=== PATIENT | male | born 1955 | race Caucasian/White ===

== ENCOUNTER 2020-09-03 13:00 | Outpatient (RCR) | payer MEDICARE, SELFPAY ==
[2020-08-20 13:56] VITALS: BP 126/80
--- NOTE | 2020-08-20 15:11 | MHC.PT.EP ---
[facility] [place] Office [place] [facility] [place] [facility] [address] Maykel Acosta [address] [phone] F: [phone] F: [phone] F: [phone] F: [phone] Physical Therapy Plan of Care Date of Evaluation: Date of Surgery: Diagnosis: dizziness and giddiness Assessment: 65 y/o male referred to PT with dizziness and giddiness. He has a history of R ear blockage and has always felt that things are still moving when he stops motion. He recently had ear wax removal and this helped his sx significantly but he still feels offbalance/ things are still moving with walking with head turns, looking up, and getting OOB. Examination shows WNL oculomotor, impaired balance espeically with eyes closed and on foam, 22/24 DGI with impairments with H/V head turns, and (-) for BPPV. Recommend PT 2x/week for 4 weeks (pt has a high co-pay and would like to come 1x/week for 2 weeks) to address impairments, implement HEP, and optimize functional mobility. Frequency and Duration: The patient will be seen 1x/week for 2 weeks Short Term Goals: Pt will demonstrate improved coordination of head and eye movement with walking Film Producer Goals: Pt to be able to functionally move in all planes without provocation of dizziness and return to PLOF in 2 weeks Pt to be educated on sx and indications to return to therapy when needed in 2 weeks Pt will report (-) for hallucination of movement/ exaggeration of motion in all functional planes Treatment Plan: Modalities to reduce pain, spasms and effusion. Manual therapy to restore motion and function. Therapeutic exercise to improve strength and flexibility. Neuromuscular re-education for posture and balance. Therapeutic activities to return to functional activities of daily living. Electronically signed by: Lindsay Vasques PT Please sign and return to therapist. Thank you for your referral.
--- NOTE | 2020-10-22 13:11 | MHC.PT.DC ---
[facility] [place] [facility] [place] [facility] [place] [facility] [address] Maykel Acosta [address] [phone] F: [phone] F: [phone] F: [phone] F: [phone] Physical Therapy Discharge Report Diagnosis: dizziness and giddiness Date of Surgery: Date of Evaluation: 08/20/20 Date of Discharge: 10/22/20 Treatments to Date: 2 Cancellations to Date: 0 No Shows to Date: 0 Discharge Status: Discharge Summary: D/c secondary to not f/u with further visits. At time of last attended visit, Pt needs cues to slow down pace of head turns and take breaks. He was most challenged with gait with diagonal and horizontal head turns with some veering laterally intermittently. He also was challenged with rockerboard balance. No dizziness or lightheadedness noted. He cancelled next visit due to [id number] and if he is able, will f/u in 1-2 weeks. Otherwise he will focus on HEP. Electronically signed by: Lindsay Vasques PT Please sign and return to therapist. Thank you for your referral.
== END 2020-10-22 13:12 | disposition home or self-care (01) ==
LOC: HO.PTCHIC 13:00
PROVIDERS: PCP Internal Medicine; Visit Provider Internal Medicine
DX: R42 Dizziness and giddiness (principal)
CPT/HCPCS: 95992; 97112; 97162

== ENCOUNTER 2020-10-25 06:38 | Outpatient (REF) | payer MEDICARE, SELFPAY ==
[2020-10-25 11:09] LABS: MANUAL DIFF FLAG NO
[2020-10-25 11:16] LABS: Basophils Percent Auto 0.6 % (0-2); Eosinophils Absolute Auto 0.3 X10*3/uL (0.0-0.4); Eosinophils Percent Auto 5.3 % (0-4); Hematocrit 46.1 % (42-52); Hemoglobin 15.6 g/dl (14.0-18.0); Imm Gran Abs Auto 0.02 X10*3/uL (0.00-0.03); Imm Gran Pct Auto 0.3 % (0.0-0.4); Lymphocytes Absolute Auto 1.6 X10*3/uL (1.2-4.9); Lymphocytes Percent Auto 25.2 % (20-40); Mean Corpuscular HGB Conc 33.8 g/dl (31.0-36.0); Mean Corpuscular Hemoglobin 30.7 pg (27.0-33.0); Mean Corpuscular Volume 90.7 fL (80-98); Mean Platelet Volume 10.6 fL (9.4-12.4); Monocytes Absolute Auto 0.7 X10*3/uL (0.1-1.2); Monocytes Percent Auto 10.3 % (2-11); Neutrophils Absolute Auto 3.7 X10*3/uL (2.0-8.3); Neutrophils Percent Auto 58.3 % (45-73); Platelet Count 223 X10*3/uL (160-400); Red Blood Count 5.08 X10*6/uL (4.60-5.80); Red Cell Distribution Width 12.7 % (11.0-16.0); White Blood Count 6.4 X10*3/uL (4.8-10.8)
[2020-10-25 11:48] LABS: Alanine Aminotransferase 16 U/L (0-40); Anion Gap 13 (12-20); Aspartate Amino Transferase 23 U/L (5-37); Blood Urea Nitrogen 19 mg/dL (9-16); Calcium 9.3 mg/dL (8.4-10.2); Carbon Dioxide 25 mmol/L (22-29); Chloride 107 mmol/L (96-108); Cholesterol 226 mg/dL; Estimated Glomerular Filt Rate > 60; Glucose Fasting 96 mg/dL (60-99); HDL Cholesterol 55 mg/dL; LDL Cholesterol Calculated 148 mg/dl; Potassium 4.4 mmol/L (3.3-5.1); Sodium 141 mmol/L (135-145); Triglycerides 115 mg/dL
[2020-10-25 11:56] LABS: Vitamin D 25-OH Total 27.3 ng/mL (>30)
[2020-10-25 12:10] LABS: PSA,Total (Free>4and<10) 1.98 ng/mL (0.00-4.00)
== END 2020-10-25 06:39 | disposition home or self-care (01) ==
LOC: HO.HMGCLDS 06:38
PROVIDERS: PCP Internal Medicine; Visit Provider Internal Medicine
DX: Z00.01 Encounter for general adult medical examination with abnormal findings (principal); E78.5 Hyperlipidemia, unspecified; I10 Essential (primary) hypertension; R42 Dizziness and giddiness
CPT/HCPCS: 36415; 80048; 80061; 82306; 84153; 84450; 84460; 85025

== ENCOUNTER 2021-10-21 12:28 | Outpatient (REF) | payer MEDICARE, SELFPAY ==
--- NOTE | ~2021-10-21 | XR_ITS ---
EXAMINATION: XR KNEE, RIGHT CLINICAL INFORMATION: M25.561 - Pain in right knee COMPARISON: Standing AP knees 08/24/2014 TECHNIQUE: Four views of the right knee. FINDINGS: There are osteoarthritic changes greatest involving the lateral patellofemoral joint with joint narrowing and subchondral sclerosis, osteophytes, and mild lateralization patella. There are marginal osteophytes also involving the femoral condyles and tibial plateau. No erosive change or visible chondrocalcinosis. Mild sharpening tibial spine again seen. No definite suprapatellar effusion. Hoffa's fat pad appears normal. XR/XR knee RT 4V IMPRESSION: -Osteoarthritis, greatest lateral patellofemoral joint with mild lateralization patella.
== END 2021-10-21 12:29 | disposition home or self-care (01) ==
LOC: HO.XRAY 12:28
PROVIDERS: PCP Internal Medicine; Visit Provider Internal Medicine
DX: M25.561 Pain in right knee (principal)
CPT/HCPCS: 73564

== ENCOUNTER 2021-10-28 07:40 | Outpatient (REF) | payer MEDICARE, SELFPAY ==
[2021-10-28 12:04] LABS: Alanine Aminotransferase 20 U/L (0-40); Anion Gap 14 (12-20); Aspartate Amino Transferase 23 U/L (5-37); Blood Urea Nitrogen 16 mg/dL (9-16); Calcium 9.2 mg/dL (8.4-10.2); Carbon Dioxide 24 mmol/L (22-29); Chloride 106 mmol/L (96-108); Cholesterol 239 mg/dL; Estimated Glomerular Filt Rate > 60; Glucose Fasting 106 mg/dL (60-99); HDL Cholesterol 51 mg/dL; LDL Cholesterol Calculated 167 mg/dl; Potassium 4.3 mmol/L (3.3-5.1); Sodium 140 mmol/L (135-145); Triglycerides 105 mg/dL
[2021-10-28 12:11] LABS: PSA,Total (Free>4and<10) 3.79 ng/mL (0.00-4.00); Vitamin D 25-OH Total 40.7 ng/mL (>30)
== END 2021-10-28 07:41 | disposition home or self-care (01) ==
LOC: HO.HMGCLDS 07:40
PROVIDERS: Visit Provider Internal Medicine
DX: Z00.01 Encounter for general adult medical examination with abnormal findings (principal); Z12.5 Encounter for screening for malignant neoplasm of prostate; E78.5 Hyperlipidemia, unspecified
CPT/HCPCS: 36415; 80048; 80061; 82306; 84153; 84450; 84460

== ENCOUNTER → 2021-11-18 09:43 | Outpatient (BNVA) | payer MEDICARE, SELFPAY | PROVIDERS: PCP Internal Medicine; Visit Provider Orthopaedic Surgery | DX: M17.11 Unilateral primary osteoarthritis, right knee (principal) | CPT/HCPCS: 99212 ==

== ENCOUNTER 2023-06-08 08:22 | Outpatient (AMB) | payer MEDICARE, SELFPAY ==
--- NOTE | 2023-06-08 08:29 | MHC.PC.OV ---
Vital Signs 06/08/23 08:31 06/08/23 09:07 Height 5 ft 9 in Weight 210 lb BMI 31.0 BP 150/92 H 150/90 H Blood Pressure Location Rt brachial Rt brachial Position Sitting Supine Pulse 76 Pulse Source Pulse Oximeter Pulse Oximetry (%) 98 Oxygen Delivery Method Room Air Intake Visit Reasons: Physical exam Intake Note: Pt is here today for his PE: Last colonoscopy 11/11/21 Allergies No Known Allergies [No Known Allergies*] Allergy (Verified 06/08/23 08:31) Medication List - Last Reconciled 06/08/23 by Susanne Duarte MD blood pressure monitor check bloos pressure As directed blood pressure test kit-medium check blood pressure as directed once a day cholecalciferol (vitamin D3) 50 mcg PO DAILY mecobalamin (vitamin B12) mcg PO omega 5-oyz-hxq-fish oil 1,200 (144-216) mg (Fish Oil) caps PO Tobacco use date assessed: 06/08/23 Fall risk assessment: No Falls in past year Last assessed Fall Risk: 06/08/23 Dental Screening Dental Screen Date: 06/08/23 Did you have a dental visit in the last 12 months?: No Was dental information given to patient?: No HPI Physical exam HPI Details 68-year-old male here today for his physical exam. He is up-to-date with his colon cancer screening, with a negative Cologuard test done in 2021. He has hypertension and hyperlipidemia, currently not on any medication and tries to control through diet and exercise patient states that he has changed his eating habi, eating more vegetables and fish, however does not get any regular exercise. Complains of urinary frequency accompanied by urinary hesitancy and weak urinary stream for the last several months now. Denies any dysuria, no abdominal or back pain. Complains of several lesions on top of his scalp, and a lump on his forehead. [facility] Medical History (Updated 06/08/23 @ 09:13 by Susanne Duarte MD) Positional lightheadedness Annual visit for general adult medical examination with abnormal findings Varicose vein of leg De Quervain's tenosynovitis, left History of squamous cell carcinoma Dyslipidemia Essential hypertension Vertigo Surgical History H/O umbilical hernia repair Hx of colonoscopy Family History (Updated 06/08/23 @ 09:15 by Susanne Duarte MD) Daughter Mental health disorder Basal cell carcinoma (BCC) of ken ugarte Other Unknown family medical history Social History Housing: House Alcohol intake: current Alcohol intake frequency: a few times a month Patient Tobacco Use Status: Never used Tobacco e-Cigarette/Vaping Use: Never Used Current occupational status: employed Cognitive needs: No Hearing needs: No Vision needs: Yes Questionnaire PHQ-9 Over the last 2 weeks, how often have you been bothered by any of the following problems? 1. Little interest or pleasure in doing things: not at all 2. Feeling down, depressed, or hopeless: not at all 3. Trouble falling or staying asleep, or sleeping too much: not at all 4. Feeling tired or having little energy: not at all 5. Poor appetite or overeating: not at all 6. Feeling bad about yourself - or that you are a failure or have let yourself or your family down: not at all 7. Trouble concentrating on things, such as reading the newspaper or watching television: not at all 8. Moving or speaking so slowly that other people could have noticed. Or the opposite - being so fidgety or restless that you have been moving around a lot more than usual: not at all 9. Thoughts that you would be better off or of hurting yourself in some way: not at all Total score: 0 Depression Screening Interpretation: Negative Depression Screening Done: Yes 83873 - PHQ-9 Billing: Yes Source: Developed by Drs. Simon Apodaca, Davina Mart, Larry Macias and colleagues, with an educational from [employer]. Thrive Questionnaire Date Thrive assessed: 06/08/23 I am a: Patient What is your living situation today?: I have a steady place to live Within the past 12 months, did the food you bought not last and you didn't have the money to get more?: Never true Within the past 12 months, did you worry whether your food would run out before you got money to buy more?: Never true Do you have trouble paying for medicines?: No Do you have trouble getting transportation to medical appointments?: No Do you have trouble paying your heating and electricity bill?: No Do you have trouble taking care of your child, family member or friend?: No Do you have trouble with day-to-day activities such as bathing, preparing meals, shopping, managing finances, etc.?: No Are you currently unemployed and looking for a job?: No Are you interested in more education?: No THRIVE Score: 0 AUDIT C Alcohol Use Questionnaire (AUDIT-C) 1. How often do you have a drink containing alcohol?: 2-3 times a week 2. How many drinks containing alcohol do you have on a typical day when you are drinking?: 1 or 2 3. How often do you have six or more drinks on one occasion?: Never Total Score: 3 MELINDA-7 AMB Questionnaire MELINDA-7 Date MELINDA - 7 assessed: 06/08/23 Feeling nervous, anxious, or on edge: 0 = Not at all Not being able to stop or control worryin = Not at all Worrying too much about different things: 0 = Not at all Trouble relaxin = Not at all Being so restless that it is hard to sit still: 0 = Not at all Becoming easily annoyed or irritable: 0 = Not at all Feeling afraid as if something awful might happen: 0 = Not at all Total MELINDA-7 score (0-4 normal; 5-9 mild; 10-14 moderate; 15-21 severe): 0 Source: Developed by Drs. Simon Apodaca, Davina Mart, Larry Macias and colleagues, with an educational from [employer]. MELINDA-7 Assessment Billing MELINDA-7 Assessment Tool: MELINDA-7 Assessment 04514 Review of Systems Const Denies body aches, Denies fatigue, Denies fever(s), Denies headache(s) and Denies weakness Eyes Reports blurry vision (With reading, wears reading glasses) ENT Reports Normal hearing present, Denies dysphagia, Denies dizziness, Denies headache(s), Denies nasal congestion, Denies disequilibrium, Denies post nasal drip, Denies tinnitus and Denies sore throat Card Denies chest pain, Denies lightheadedness, Denies palpitations and Denies dyspnea Resp Denies chest congestion, Denies cough, Denies dyspnea and Denies wheezing GI Denies abdominal pain, Denies change in bowel habits, Denies dysphagia and Denies heartburn Reports as per HPI, Denies hematuria, Denies difficulty urinating, Denies dysuria, Denies penile discharge, Denies testicular mass, Reports urinary hesitancy and Denies urinary incontinence Musc Denies myalgias, Reports arthralgias, Denies joint swelling, Denies limited range of motion and Reports stiffness (Fingers, knees and shoulders) Skin/Breast Reports as per HPI and Denies rash Neuro Reports Normal hearing present, Denies dizziness, Denies headache(s), Denies disequilibrium and Denies weakness Psych Reports no additional complaints Endo Denies fatigue, Denies polydipsia, Denies polyuria and Denies palpitations Kevin/Lymph Denies easy bruising Aller/Immun Denies seasonal rhinorrhea and Denies wheezing Physical exam (Primary Care) Vital Signs: Last Vital Signs Pulse 76 06/08/23 08:31 BP 150/92 H 06/08/23 08:31 Pulse Ox 98 06/08/23 08:31 Oxygen Delivery Method Room Air 06/08/23 08:31 BMI result Body Mass Index 31.0 BMI Assessment/Plan discussion: High BMI High, discussed plan: lifestyle, weight reduction, dietary, physical activity and alcohol moderation Tobacco/Smoking Status: Tobacco use Status Tobacco use date assessed 06/08/23 06/08/23 08:35 Patient Tobacco Use Status Never used Tobacco 06/08/23 08:35 e-Cigarette/Vaping Use Never Used 06/08/23 08:35 Depression Screening Interpretation: Negative Thrive Assessment: Date of Thrive Assessment Date Thrive assessed 10/18/21 06/08/23 08:35 Const General: cooperative, comfortable, no acute distress and Physically active Nutritional Appearance: obese Orientation/consciousness: patient oriented x3 Limitations: no limitations HENMT Head: Yes normal to inspection and Yes scalp lesion (Erythematous papular lesions on top of scalp) Ears: hearing grossly normal bilaterally, external ears normal, TM's normal bilaterally and Abnormal EAC present excessive cerumen on the left; no EA tenderness and no otic discharge General nose exam: Normal external nose present Face and sinus: Yes face symmetric Mouth: Normal oral and palatal mucosa present, oropharynx normal and moist mucous membranes Eyes General: appearance normal, both eyes and all related structures Conjunctivae: conjunctivae normal Pupils: Equal, round and reactive pupils present EOM: EOMs intact bilaterally Neck Neck: Yes full ROM, Yes no lymphadenopathy and Yes supple Thyroid: Thyroid normal Chest Chest palpation & inspection: normal inspection of the chest Resp Effort & Inspection: normal respiratory effort and able to speak in complete sentences Auscultation: clear to auscultation bilaterally Cardio Rate: regular rate Rhythm: regular rhythm Heart sounds: S1 normal heart sound present and S2 normal heart sound present GI Inspection: Yes normal to inspection Palpation (GI): Soft to palpation, nontender and no masses Auscultation: normal bowel sounds General: Yes no CVA tenderness Male General Exam: Yes normal external exam Penis: normal penis Scrotum: scrotum normal Testes: no testicular mass Back/Spine/Pelvis Back: no CVA tenderness and No back tenderness Cervical Spine: cervical ROM normal Thoracic/Lumbar Spine: thoracic and lumbar spine normal to inspection Skin Other: Nodular lesion on forehead, nontender to palpation, erythematous papular lesions on top of scalp Neuro General: patient oriented x3, gait normal, tone normal, moves all extremities, Normal light touch and pain sensation and no focal motor deficits Cranial nerves: Yes Equal, round and reactive pupils present and Yes Normal hearing present Cognition (Neuro): normal cognition Gait exam (Neuro): Normal gait present Motor exam (neuro): 5/5 motor strength present throughout Extrem General: Yes full ROM, Yes no joint enlargement, Yes no pedal edema, Yes no calf tenderness and Yes normal gait Psych Appearance: grossly normal Mental Status: mental status grossly normal Speech and movement: Normal speech and movement present and Clear speech present Affect: normal affect Attitude: cooperative Thought process: Normal thought process present Thought content: Normal thought content present Assessment and Plan Assessment & Plan (1) Annual visit for general adult medical examination with abnormal findings: Code(s): Z00.01 - Encounter for general adult medical examination with abnormal findings Plan: Will check appropriate labs. Recommended dental visit every 6 months and regular eye exams, at least every 2 years. Continue with taking calcium from dietary sources and continue taking vitamin-D 3 2000 units daily. Do regular weight-bearing exercise to prevent osteoporosis. Up-to-date with his colon cancer screening had Cologuard testing done in 2021 with negative findings, due again in 2024. Up-to-date with all his vaccinations. Advised to do regular self testicular exam to check for any mass. (2) Dyslipidemia: Code(s): E78.5 - Hyperlipidemia, unspecified Plan: Fasting lipid panel ordered, reinforced importance of following low-cholesterol diet and getting regular exercise. (3) Essential hypertension: Code(s): I10 - Essential (primary) hypertension Plan: Blood pressure has been elevated, currently asymptomatic. Patient declines starting any medications at present time, placed on a low-salt diet advised to exercise regularly, and see nurse navigator in 3 weeks to check blood pressure. Bring own blood pressure monitor to confirm accuracy of readings. If persistently elevated, will start on medication (4) Skin cancer screening: Code(s): Z12.83 - Encounter for screening for malignant neoplasm of skin Plan: Referral to Dr. Espinoza ordered (5) Skin lesion of scalp: Code(s): L98.9 - Disorder of the skin and subcutaneous tissue, unspecified Plan: Referral to Dr. Espinoza ordered (6) Increased urinary frequency: Code(s): R35.0 - Frequency of micturition Plan: Referral to urology, ordered total PSA level (7) Urinary stream slowing: Code(s): R39.198 - Other difficulties with micturition Plan: Referral to urology Orders: Orders PSA,Total (Free>4and<10) Today E78.5 - Hyperlipidemia, unspecified, I10 - Essential (primary) hypertension, R35.0 - Frequency of micturition, R39.198 - Other difficulties with micturition, Z00.01 - Encounter for general adult medical examination with abnormal findings Aspartate Amino Transferase Today E78.5 - Hyperlipidemia, unspecified, I10 - Essential (primary) hypertension, R35.0 - Frequency of micturition, R39.198 - Other difficulties with micturition, Z00.01 - Encounter for general adult medical examination with abnormal findings Basic Metabolic Panel Fasting Today E78.5 - Hyperlipidemia, unspecified, I10 - Essential (primary) hypertension, R35.0 - Frequency of micturition, R39.198 - Other difficulties with micturition, Z00.01 - Encounter for general adult medical examination with abnormal findings Lipid Panel Today E78.5 - Hyperlipidemia, unspecified, I10 - Essential (primary) hypertension, R35.0 - Frequency of micturition, R39.198 - Other difficulties with micturition, Z00.01 - Encounter for general adult medical examination with abnormal findings Vitamin D 25-OH Total Today E78.5 - Hyperlipidemia, unspecified, I10 - Essential (primary) hypertension, R35.0 - Frequency of micturition, R39.198 - Other difficulties with micturition, Z00.01 - Encounter for general adult medical examination with abnormal findings Alanine Aminotransferase Today E78.5 - Hyperlipidemia, unspecified, I10 - Essential (primary) hypertension, R35.0 - Frequency of micturition, R39.198 - Other difficulties with micturition, Z00.01 - Encounter for general adult medical examination with abnormal findings Hemoglobin A1c Today E78.5 - Hyperlipidemia, unspecified, I10 - Essential (primary) hypertension, R35.0 - Frequency of micturition, R39.198 - Other difficulties with micturition, Z00.01 - Encounter for general adult medical examination with abnormal findings Referrals Urology Referral R35.0 - Frequency of micturition, R39.198 - Other difficulties with micturition Dermatology Referral L98.9 - Disorder of the skin and subcutaneous tissue, unspecified, Z12.83 - Encounter for screening for malignant neoplasm of skin Coding Level of Care Code Est Pt Prev Care >65y(87961) Diagnoses Annual visit for general adult medical examination with abnormal findings Z00. Dyslipidemia E78.5 Essential hypertension I10 Skin cancer screening Z12.83 Skin lesion of scalp L98.9 Increased urinary frequency R35.0 Urinary stream slowing R39.198 Additional Codes MELINDA-7 Assessment Billing - MELINDA-7 Assessment Tool: MELINDA-7 Assessment 38001 ([id number])
[2023-06-08 08:31] VITALS: BP 150/92; PULSE 76; O2SAT 98; BMI 31.0
[2023-06-08 09:07] VITALS: BP 150/90
== END 2023-06-08 09:10 | disposition home or self-care (01) ==
PROVIDERS: PCP Internal Medicine; Visit Provider Internal Medicine
DX: Z00.00 Encounter for general adult medical examination without abnormal findings (principal); E78.5 Hyperlipidemia, unspecified; I10 Essential (primary) hypertension; Z12.83 Encounter for screening for malignant neoplasm of skin; L98.9 Disorder of the skin and subcutaneous tissue, unspecified; R35.0 Frequency of micturition; R39.198 Other difficulties with micturition
CPT/HCPCS: 99397

== ENCOUNTER 2023-06-09 06:30 | Outpatient (REF) | payer MEDICARE, SELFPAY ==
[2023-06-09 11:22] LABS: Estimated Average Glucose 103 mg/dL; Hemoglobin A1c % 5.2 % (<6.0)
[2023-06-09 11:39] LABS: Alanine Aminotransferase 19 U/L (0-40); Anion Gap 10 (12-20); Aspartate Amino Transferase 21 U/L (5-37); Blood Urea Nitrogen 19 mg/dL (9-16); Calcium 9.8 mg/dL (8.4-10.2); Carbon Dioxide 28 mmol/L (22-29); Chloride 107 mmol/L (96-108); Cholesterol 231 mg/dL (<200); Estimated Glomerular Filt Rate > 60; Glucose Fasting 104 mg/dL (60-99); HDL Cholesterol 54 mg/dL (>40); LDL Cholesterol Calculated 158 mg/dL (<100); Potassium 4.2 mmol/L (3.3-5.1); Sodium 141 mmol/L (135-145); Triglycerides 95 mg/dL (<150)
[2023-06-09 11:41] LABS: PSA,Total (Free>4and<10) 2.98 ng/mL (0.00-4.00)
[2023-06-09 11:56] LABS: Vitamin D 25-OH Total 66.9 ng/mL (>30)
== END 2023-06-09 06:31 | disposition home or self-care (01) ==
LOC: HO.HMGCLDS 06:30
PROVIDERS: PCP Internal Medicine; Visit Provider Internal Medicine
DX: Z00.01 Encounter for general adult medical examination with abnormal findings (principal); Z12.5 Encounter for screening for malignant neoplasm of prostate; E78.5 Hyperlipidemia, unspecified; I10 Essential (primary) hypertension; R35.0 Frequency of micturition; R39.198 Other difficulties with micturition
CPT/HCPCS: 36415; 80048; 80061; 82306; 83036; 84153; 84450; 84460

== ENCOUNTER 2023-07-27 08:50 | Outpatient (AMB) | payer MEDICARE, SELFPAY ==
--- NOTE | 2023-07-27 09:03 | MHC.OFFVIS ---
Intake Intake Visit Reasons: urinary frequency Intake Note: New Patient presents for initial visit for urinary frequency Urology Medications: none Blood Thinner: none Planograph Operator Required: No Accompanied by: Self / Same As Patient Allergies No Known Allergies [No Known Allergies*] Allergy (Verified 07/27/23 09:28) Medication List - Last Reconciled 07/27/23 by JILLIAN Anthony blood pressure monitor check bloos pressure As directed blood pressure test kit-medium check blood pressure as directed once a day cholecalciferol (vitamin D3) 50 mcg PO DAILY lisinopril 5 mg PO DAILY mecobalamin (vitamin B12) mcg PO omega 4-kqu-bmw-fish oil 1,200 (144-216) mg (Fish Oil) caps PO HPI HPI Comments History of Present Illness Details Salomon is a 5-year-old male patient of Dr. Duarte. 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 He presents to the office today as a new patient for ongoing lower urinary tract symptoms. In discussion with the patient today he reports noting over the last 3-5 years worsening of weak urinary stream, urinary hesitancy, and urinary frequency. He reports having followed up with his PCP at which time recommendations were made for urology referral for further assessment evaluation. In review of patient's chart it appears PSAs are as follows: 11/03 2.0, 11/04 3.8, 06/09 3.0 He otherwise denies urinary urgency,incontinence, nocturia, hematuria, dysuria, flank pain, fever, and or chills. He reports that although he is experiencing these lower urinary tract symptoms he does not find them bothersome. He discusses not knowing his family history as he has been adopted. He also discusses noting his urine does smell like popcorn at times. In office urinalysis results reviewed with the patient today. He otherwise denies any other issues or concerns at this time. [facility] Medical History Positional lightheadedness Annual visit for general adult medical examination with abnormal findings Varicose vein of leg De Quervain's tenosynovitis, left History of squamous cell carcinoma Dyslipidemia Essential hypertension Vertigo Surgical History H/O umbilical hernia repair Hx of colonoscopy Family History Daughter Mental health disorder Basal cell carcinoma (BCC) of ken ugarte Other Unknown family medical history Social History Housing: House Alcohol intake: current Alcohol intake frequency: a few times a month Patient Tobacco Use Status: Never used Tobacco e-Cigarette/Vaping Use: Never Used Current occupational status: employed Cognitive needs: No Hearing needs: No Vision needs: Yes Review of Systems Const Reports no additional complaints Eyes Reports no additional complaints ENT Reports no additional complaints Card Reports as per HPI Resp Reports no additional complaints GI Reports no additional complaints Reports as per HPI Skin/Breast Reports as per HPI Neuro Reports no additional complaints Psych Reports no additional complaints Endo Reports no additional complaints Kevin/Lymph Reports no additional complaints Aller/Immun Reports no additional complaints Physical Exam Const General: cooperative, healthy appearing, comfortable, no acute distress, well developed, alert and awake Orientation/consciousness: patient oriented x3 Limitations: no limitations HEENT Head: Yes normal to inspection, Yes normocephalic and Yes atraumatic Ears: hearing grossly normal bilaterally Eyes General: appearance normal, both eyes and all related structures Neck Neck: Yes normal visual inspection and Yes trachea midline Chest Chest palpation & inspection: normal inspection of the chest Resp Effort & Inspection: normal respiratory effort and able to speak in complete sentences Cardio Rate: regular rate GI Inspection: Yes normal to inspection General: Yes no CVA tenderness Back/Spine/Pelvis Back: no CVA tenderness Skin General skin exam: no rashes or lesions noted Neuro General: patient oriented x3 Extrem General: Yes normal to inspection Psych Appearance: grossly normal and well kempt Mental Status: mental status grossly normal Speech and movement: Normal speech and movement present and Clear speech present Affect: normal affect Attitude: cooperative Thought process: Normal thought process present Thought content: Normal thought content present Insight: Fair insight present (Psych) Judgement: Fair judgement present (Psych) Office Procedures Post Void Residual Post Residual Void Post Void Residual (PVR): 62 [id number] Void Residual by ultrasound Results AMB Urinalysis, Automated UA Leukoctes 0 Leonie/uL Last Edit by Michael Yanes on 07/27/23 09:28 UA Nitrite Negative Last Edit by Michael Yanes on 07/27/23 09:28 UA Urobilinogen 0.2 mg/dL Last Edit by Michael Yanes on 07/27/23 09:28 UA Protein 0 mg/dL Last Edit by Michael Yanes on 07/27/23 09:28 UA pH 6.0 Last Edit by Michael Yanes on 07/27/23 09:28 UA Blood 0 Thomas/uL Last Edit by Michael Yanes on 07/27/23 09:28 UA Specific [place] 1.020 Last Edit by Michael Yanes on 07/27/23 09:28 UA Ketone Negative Last Edit by Michael Yanes on 07/27/23 09:28 UA Bilirubin 0 mg/dL Last Edit by Michael Yanes on 07/27/23 09:28 UA Glucose 0 mg/dL Last Edit by Michael Yanes on 07/27/23 09:28 Assessment & Plan Assessment & Plan (1) Weak urinary stream: Code(s): R39.12 - Poor urinary stream (2) Urinary hesitancy due to benign prostatic hyperplasia: Code(s): N40.1 - Benign prostatic hyperplasia with lower urinary tract symptoms; R39.11 - Hesitancy of micturition (3) Urinary frequency: Code(s): R35.0 - Frequency of micturition Plan In office urinalysis results reviewed with the patient today; as noted above. Discussed at length potential causes of lower urinary tract symptoms patient is experiencing. Will obtain retroperitoneal ultrasound for further assessment evaluation. Reviewed and trended PSAs with the patient today; as noted above. Discussed possible near future in office cystoscopy and or urodynamics for further assessment evaluation. Discussed lifestyle modifications to assist with lower urinary tract symptoms patient is experiencing. Discussed bladder triggers/irritants. Follow-up in 1-3 months with imaging to be completed prior; or sooner with any issues, concerns, and or questions. Orders: Orders AMB Urinalysis Automated Today Z13.9 - Encounter for screening, unspecified AMB Post Void Residual by ultrasound Today Z13.9 - Encounter for screening, unspecified US retroperitoneal comp Today N40.1 - Benign prostatic hyperplasia with lower urinary tract symptoms, R35.0 - Frequency of micturition, R39.11 - Hesitancy of micturition, R39.12 - Poor urinary stream Patient Instructions: The patient had an opportunity to ask questions regarding the treatment plan. All questions were answered. Physical exam, labs, and imaging were discussed and reviewed in detail. As well as risks, benefits, and discussion of treatment choices. No major barriers to understanding were identified. The patient expressed understanding and agreement with the above treatment plan. The patient was made aware they should contact our office by phone for worsening of their current condition, the appearance of new symptoms, or with any questions or concerns. Compliance is encouraged with any medications and follow up testing that is ordered. It is a privilege to be allowed the opportunity to participate in? your urological care.? Again, if you have any questions or concerns If you have any questions or concerns please do not hesitate to contact me. The office is [phone]. This note is constructed using voice recognition software. While every effort has been made to ensure accuracy lamination builder errors may have been included. Yours sincerely, JILLIAN Anthoyn Coding Level of Care Code New Pt Level 3 (69895) Diagnoses Weak urinary stream R39.12 Urinary hesitancy due to benign prostatic hyperplasia N40.1; R39.11 Urinary frequency R35.0 CPT Codes Post Residual Void - PVR CPT Code: 72816-Hhky Void Residual by ultrasound ([id number])
== END 2023-07-27 09:32 | disposition home or self-care (01) ==
PROVIDERS: PCP Internal Medicine; Visit Provider Nurse Practitioner Family
DX: N40.1 Benign prostatic hyperplasia with lower urinary tract symptoms (principal); R39.12 Poor urinary stream; R39.11 Hesitancy of micturition; R35.0 Frequency of micturition; Z13.9 Encounter for screening, unspecified
CPT/HCPCS: 99203

== ENCOUNTER → 2023-07-27 08:50 | Outpatient (BNVA) | payer MEDICARE, SELFPAY | PROVIDERS: PCP Internal Medicine; Visit Provider Nurse Practitioner Family | DX: N40.1 Benign prostatic hyperplasia with lower urinary tract symptoms (principal); R39.12 Poor urinary stream; R39.11 Hesitancy of micturition; R35.0 Frequency of micturition | CPT/HCPCS: 51798; 81003; 99202 ==

== ENCOUNTER 2023-08-08 09:39 | Outpatient (REF) | payer MEDICARE, SELFPAY ==
--- NOTE | ~2023-08-08 | US_ITS ---
EXAMINATION: US RETROPERITONEAL COMPLETE (RENAL) CLINICAL INFORMATION: Benign prostatic hyperplasia with lower urinary tract symptoms. COMPARISON: Ultrasound abdomen limited 03/29/2017. TECHNIQUE: Real-time imaging of the kidneys and bladder. FINDINGS: RIGHT KIDNEY: 10.5 x 6.2 x 5.8 cm (SAG x AP x TRV). The kidney is normal in size, contour, and echogenicity. Renal cortical thickness is normal. No calculi or focal parenchymal lesions. No hydronephrosis. LEFT KIDNEY: 10.8 x 5.7 x 4.6 cm (SAG x AP x TRV). The kidney is normal in size, contour, and echogenicity. Renal cortical thickness is normal. No calculi or focal parenchymal lesions. No hydronephrosis. BLADDER: Well distended and normal. Bilateral ureteral jets are demonstrated. Prevoid bladder volume is 354 mL. Postvoid bladder volume is 100 mL. ADDITIONAL FINDINGS: Prostate is mildly enlarged with a volume of 27.1 mL. US/US retroperitoneal comp IMPRESSION: 1. Normal appearance of the kidneys. 2. Large post void residual. 3. Mild enlargement of the prostate.
== END 2023-08-08 09:40 | disposition home or self-care (01) ==
LOC: HO.US 09:39
PROVIDERS: PCP Internal Medicine; Visit Provider Nurse Practitioner Family
DX: N40.1 Benign prostatic hyperplasia with lower urinary tract symptoms (principal); R39.11 Hesitancy of micturition; R39.12 Poor urinary stream; R35.0 Frequency of micturition
CPT/HCPCS: 76770

== ENCOUNTER 2023-09-13 08:44 | Outpatient (AMB) | payer MEDICARE, SELFPAY ==
--- NOTE | 2023-09-13 08:50 | A.OFFVIS_ITS ---
Intake Visit Reasons: 2m/US(set) Intake Note: Patient presents for follow up visit for urinary frequency Urology Medications: none Blood Thinner: none PVR: 20ml's Sleeping Room Cleaner Required: No Accompanied by: Self / Same As Patient Allergies No Known Allergies [No Known Allergies*] Allergy (Verified 09/13/23 09:08) Medication List - Last Reconciled 09/13/23 by JILLIAN Anthony blood pressure monitor check bloos pressure As directed blood pressure test kit-medium check blood pressure as directed once a day cholecalciferol (vitamin D3) 50 mcg PO DAILY lisinopril 5 mg PO DAILY mecobalamin (vitamin B12) mcg PO omega 6-vwl-jnd-fish oil 1,200 (144-216) mg (Fish Oil) caps PO HPI Comments Details: Salomon is a 68-year-old male patient of Dr. Duarte. 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 He presents to the office today for a follow up. Of note, patient was seen approximately 6 weeks ago as a new patient for ongoing lower urinary tract symptoms at which time retroperitoneal ultrasound was ordered for further assessment evaluation. These results were reviewed with the patient today. Bilateral kidneys with no calculi, lesions, and or hydronephrosis. The bladder is well distended and normal.Bilateral ureteral jets are demonstrated. Prevoid bladder volume is 354 mL. Postvoid bladder volume is 100 mL. Prostate is mildly enlarged with a volume of approximately 27 mL. He discusses his main concern is that he does not know his family history as he was adopted. He does report/note over the last 3-5 years worsening of weak urinary stream, urinary hesitancy, and urinary frequency. However he does not find these urinary symptoms bothersome at this time. In review of patient's chart it appears PSAs are as follows: 11/03 2.0, 11/04 3.8, 06/09 3.0 He otherwise denies urinary urgency,incontinence, nocturia, hematuria, dysuria, flank pain, fever, and or chills. In office urinalysis results reviewed with the patient today. PVR 20 mL. He otherwise denies any other issues or concerns at this time. [facility] Medical History Positional lightheadedness Annual visit for general adult medical examination with abnormal findings Varicose vein of leg De Quervain's tenosynovitis, left History of squamous cell carcinoma Dyslipidemia Essential hypertension Vertigo Surgical History H/O umbilical hernia repair Hx of colonoscopy Family History Daughter Mental health disorder Basal cell carcinoma (BCC) of ken ugarte Other Unknown family medical history Social History Housing: House Alcohol intake: current Alcohol intake frequency: a few times a month Patient Tobacco Use Status: Never used Tobacco e-Cigarette/Vaping Use: Never Used Current occupational status: employed Cognitive needs: No Hearing needs: No Vision needs: Yes Review of Systems Const Reports no additional complaints Eyes Reports no additional complaints ENT Reports no additional complaints Card Reports as per HPI Resp Reports no additional complaints GI Reports no additional complaints Reports as per HPI Skin/Breast Reports as per HPI Neuro Reports no additional complaints Psych Reports no additional complaints Endo Reports no additional complaints Kevin/Lymph Reports no additional complaints Aller/Immun Reports no additional complaints Physical Exam Const General: cooperative, healthy appearing, comfortable, no acute distress, well developed, alert and awake Orientation/consciousness: patient oriented x3 Limitations: no limitations HEENT Head: Yes normal to inspection, Yes normocephalic and Yes atraumatic Ears: hearing grossly normal bilaterally Eyes General: appearance normal, both eyes and all related structures Neck Neck: Yes normal visual inspection and Yes trachea midline Chest Chest palpation & inspection: normal inspection of the chest Resp Effort & Inspection: normal respiratory effort and able to speak in complete sentences Cardio Rate: regular rate GI Inspection: Yes normal to inspection General: Yes no CVA tenderness Back/Spine/Pelvis Back: no CVA tenderness Skin General skin exam: no rashes or lesions noted Neuro General: patient oriented x3 Extrem General: Yes normal to inspection Psych Appearance: grossly normal and well kempt Mental Status: mental status grossly normal Speech and movement: Normal speech and movement present and Clear speech present Affect: normal affect Attitude: cooperative Thought process: Normal thought process present Thought content: Normal thought content present Insight: Fair insight present (Psych) Judgement: Fair judgement present (Psych) Office Procedures Post Void Residual Post Residual Void Post Void Residual (PVR): 20 [id number] Void Residual by ultrasound Results AMB Urinalysis, Automated UA Leukoctes 0 Leonie/uL Last Edit by Michael Yanes on 09/13/23 09:00 UA Nitrite Negative Last Edit by Michael Yanes on 09/13/23 09:00 UA Urobilinogen 0.2 mg/dL Last Edit by Michael Yanes on 09/13/23 09:00 UA Protein 0 mg/dL Last Edit by Michael Yanes on 09/13/23 09:00 UA pH 6.0 Last Edit by Michael Yanes on 09/13/23 09:00 UA Blood 0 Thomas/uL Last Edit by Michael Yanes on 09/13/23 09:00 UA Specific [place] 1.015 Last Edit by Michael Yanes on 09/13/23 09:00 UA Ketone Negative Last Edit by Michael Yanes on 09/13/23 09:00 UA Bilirubin 0 mg/dL Last Edit by Michael Yanes on 09/13/23 09:00 UA Glucose 0 mg/dL Last Edit by Michael Yanes on 09/13/23 09:00 Results Reviewed Results Reviewed: Laboratory Last Values Urine pH (Auto) 6.0 09/13/23 08:53 Specific [place] (Auto) 1.015 09/13/23 08:53 Urine Protein (Auto) 0 mg/dL 09/13/23 08:53 Glucose (UA)(Auto) 0 mg/dL 09/13/23 08:53 Urine Ketones (Auto) Negative 09/13/23 08:53 Urine Blood (Auto) 0 Thomas/uL 09/13/23 08:53 Urine Nitrite (Auto) Negative 09/13/23 08:53 Urine Bilirubin (Auto) 0 mg/dL 09/13/23 08:53 Urine Urobilinogen (Auto) 0.2 mg/dL 09/13/23 08:53 Leukocyte Esterase (Auto) 0 Leonie/uL 09/13/23 08:53 Ordering Physician: Cassy HearnBC Date of Service: 08/08/23 Procedure(s): US retroperitoneal comp Accession Number(s): [id number] cc: Susanne Duarte MD; Cassy Hearn [employer] DIVER-BC~ EXAMINATION: US RETROPERITONEAL COMPLETE (RENAL) CLINICAL INFORMATION: Benign prostatic hyperplasia with lower urinary tract symptoms. COMPARISON: Ultrasound abdomen limited 03/29/2017. TECHNIQUE: Real-time imaging of the kidneys and bladder. FINDINGS: RIGHT KIDNEY: 10.5 x 6.2 x 5.8 cm (SAG x AP x TRV). The kidney is normal in size, contour, and echogenicity. Renal cortical thickness is normal. No calculi or focal parenchymal lesions. No hydronephrosis. LEFT KIDNEY: 10.8 x 5.7 x 4.6 cm (SAG x AP x TRV). The kidney is normal in size, contour, and echogenicity. Renal cortical thickness is normal. No calculi or focal parenchymal lesions. No hydronephrosis. BLADDER: Well distended and normal. Bilateral ureteral jets are demonstrated. Prevoid bladder volume is 354 mL. Postvoid bladder volume is 100 mL. ADDITIONAL FINDINGS: Prostate is mildly enlarged with a volume of 27.1 mL. US/US retroperitoneal comp IMPRESSION: 1. Normal appearance of the kidneys. 2. Large post void residual. 3. Mild enlargement of the prostate. Assessment & Plan Assessment & Plan (1) Weak urinary stream: Code(s): R39.12 - Poor urinary stream Category: Medical (2) Urinary hesitancy due to benign prostatic hyperplasia: Code(s): N40.1 - Benign prostatic hyperplasia with lower urinary tract symptoms; R39.11 - Hesitancy of micturition Category: Medical (3) Urinary frequency: Code(s): R35.0 - Frequency of micturition Category: Medical Plan In office urinalysis results reviewed with the patient today; as noted above. PVR 20 mL. Recent retroperitoneal ultrasound results reviewed with the patient today; as noted above. Patient does report noting lower urinary tract symptoms however does not feel these are bothersome for him at this time. Reviewed and trended PSAs with the patient today; as noted above. Discussed possible near future in office cystoscopy and or urodynamics for further assessment evaluation if symptoms arise. Discussed lifestyle modifications to assist with lower urinary tract symptoms patient is experiencing. Discussed bladder triggers/irritants. PSA in May Follow-up in May with PSA to be completed prior; or sooner with any issues, concerns, and or questions. Orders: Orders AMB Post Void Residual by ultrasound Today R35.0 - Frequency of micturition AMB Urinalysis Automated Today Z13.9 - Encounter for screening, unspecified Prostate Specific Antigen 8 Months N40.1 - Benign prostatic hyperplasia with lower urinary tract symptoms, R39.11 - Hesitancy of micturition Patient Instructions: The patient had an opportunity to ask questions regarding the treatment plan. All questions were answered. Physical exam, labs, and imaging were discussed and reviewed in detail. As well as risks, benefits, and discussion of treatment choices. No major barriers to understanding were identified. The patient expressed understanding and agreement with the above treatment plan. The patient was made aware they should contact our office by phone for worsening of their current condition, the appearance of new symptoms, or with any questions or concerns. Compliance is encouraged with any medications and follow up testing that is ordered. It is a privilege to be allowed the opportunity to participate in? your urological care.? Again, if you have any questions or concerns If you have any questions or concerns please do not hesitate to contact me. The office is [phone]. This note is constructed using voice recognition software. While every effort has been made to ensure accuracy placement director errors may have been included. Yours sincerely, JILLIAN Anthony Coding Level of Care Code Est Pt Level 3 (45488) Diagnoses Weak urinary stream R39.12 Urinary hesitancy due to benign prostatic hyperplasia N40.1; R39.11 Urinary frequency R35.0 CPT Codes Post Residual Void - PVR CPT Code: 21730-Zxdv Void Residual by ultrasound ([id number])
== END 2023-09-13 09:13 | disposition home or self-care (01) ==
PROVIDERS: PCP Internal Medicine; Visit Provider Nurse Practitioner Family
DX: N40.1 Benign prostatic hyperplasia with lower urinary tract symptoms (principal); R39.12 Poor urinary stream; R39.11 Hesitancy of micturition; R35.0 Frequency of micturition; Z13.9 Encounter for screening, unspecified
CPT/HCPCS: 99213

== ENCOUNTER → 2023-09-13 08:44 | Outpatient (BNVA) | payer MEDICARE, SELFPAY | PROVIDERS: PCP Internal Medicine; Visit Provider Nurse Practitioner Family | DX: N40.1 Benign prostatic hyperplasia with lower urinary tract symptoms (principal); R39.12 Poor urinary stream; R39.11 Hesitancy of micturition; R35.0 Frequency of micturition | CPT/HCPCS: 51798; 81003; 99212 ==

== ENCOUNTER 2024-03-05 09:54 | Outpatient (AMB) | payer MEDICARE, SELFPAY ==
[2024-03-05 09:57] VITALS: BP 132/80; PULSE 82; O2SAT 98
--- NOTE | 2024-03-05 09:57 | AM.OFFWIN_ITS ---
Intake Vital Signs 03/05/24 09:57 Weight 209 lb BP 132/80 Blood Pressure Location Rt brachial Position Sitting Pulse 82 Pulse Source Pulse Oximeter Pulse Oximetry (%) 98 Oxygen Delivery Method Room Air Intake Visit Reasons: EP-rt leg pain Intake Note: Patient here for right leg pain that started about a week ago and has been worsening. pt states he has a hx of varicose veins and is unsure if its related. Patient Tobacco Use Status: Never used Tobacco Allergies No Known Allergies [No Known Allergies*] Allergy (Verified 03/05/24 09:59) Do you need a note to return to daycare/school/sports/work: No HPI EP-rt leg pain HPI Details This note is constructed using voice recognition software. While every effort has been made to ensure accuracy, brake tester errors may have been included. The patient is a 68 year old male who presents to the clinic today with right lower extremity swelling and pain for the past 4 days. He notes the history of varicose veins, and was unsure if this was related however he has been having pain in his right lower extremity that seems to be worsening with swelling. He denies any specific injury to the area has not had a fall, twisting motion, or any other reason to believe that he has injured the area. [facility] Medical History Positional lightheadedness Annual visit for general adult medical examination with abnormal findings Varicose vein of leg De Quervain's tenosynovitis, left History of squamous cell carcinoma Dyslipidemia Essential hypertension Vertigo Surgical History H/O umbilical hernia repair Hx of colonoscopy Family History Daughter Mental health disorder Basal cell carcinoma (BCC) of ken ugarte Other Unknown family medical history Social History Housing: House Alcohol intake: current Alcohol intake frequency: a few times a month Patient Tobacco Use Status: Never used Tobacco e-Cigarette/Vaping Use: Never Used Current occupational status: employed Cognitive needs: No Hearing needs: No Vision needs: Yes Review of Systems Const All systems reviewed & are unremarkable except as noted in HPI and below Physical Exam Vital Signs: Last Vital Signs Pulse 82 03/05/24 09:57 BP 132/80 03/05/24 09:57 Pulse Ox 98 03/05/24 09:57 Oxygen Delivery Method Room Air 03/05/24 09:57 Const General: cooperative, healthy appearing, comfortable, no acute distress and well developed Orientation/consciousness: patient oriented x3 Limitations: no limitations Resp Effort & Inspection: normal respiratory effort and able to speak in complete sentences Auscultation: clear to auscultation bilaterally Cardio Rate: regular rate Rhythm: regular rhythm Heart sounds: normal S1 and S2 Skin General skin exam: no rashes or lesions noted Neuro General: patient oriented x3 Extrem Other: Varicose veins present to bilateral lower legs. Nonpitting right lower extremity anemia beneath the area of tenderness which is the medial aspect of the calf, with tenderness. No erythema or warmth. Negative Homans General: Yes normal to inspection Assessment & Plan Assessment & Plan (1) Pain and swelling of right lower extremity: Code(s): M79.604 - Pain in right leg; M79.89 - Other specified soft tissue disorders Plan: Discussed with patient that this may be entirely related to his varicosities, however with the worsening symptoms, and unilateral edema, it would be appropriate to rule out DVT. Venous duplex ordered. Patient is scheduled for 11:00 today. Reviewed with patient the potential treatment options should he have a DVT. He wishes to avoid injectable anticoagulants if possible. Advised him that if the duplex is negative this is likely related to his varicosities, and I advised him to wear compression stockings if that is the case. Plan See above for full details and plan. Orders: Orders US venous duplex LE RT Today M79.661 - Pain in right lower leg, M79.89 - Other specified soft tissue disorders Coding Level of Care Code Est Pt Level 4 (32842) Diagnoses Pain and swelling of right lower extremity M79.604; M79.89
== END 2024-03-05 12:21 | disposition home or self-care (01) ==
PROVIDERS: PCP Internal Medicine; Visit Provider Registered Nurse
DX: M79.604 Pain in right leg (principal); M79.89 Other specified soft tissue disorders

== ENCOUNTER 2024-03-05 10:40 | Outpatient (REF) | payer MEDICARE, SELFPAY ==
--- NOTE | ~2024-03-05 | US_ITS ---
EXAMINATION: US TRIPLEX LOWER EXTREMITY, RIGHT CLINICAL INFORMATION: Right lower leg pain. Evaluate for deep vein thrombosis. COMPARISON: None available. TECHNIQUE: Color-flow triplex imaging with spectral analysis and compression Doppler were performed on the right lower extremity. FINDINGS: Heterogeneous echogenicity within the right greater saphenous vein extending from the right calf procurement services manager veins into the greater saphenous vein through the proximal thigh. This is located approximately 7.5 cm from the common femoral vein. Findings are consistent with superficial thrombophlebitis. Respiratory variation, normal compression and augmented flow are noted throughout the right lower extremity deep veins. The visualized common femoral vein, superficial femoral vein, profunda femoral vein, popliteal vein and midcalf peroneal and posterior tibial venous segments show no evidence of deep venous thrombosis. There is no Duque's cyst. US/US venous duplex LE RT IMPRESSION: 1. Superficial thrombophlebitis involving the right greater saphenous vein extending from the right calf procurement services manager veins into the greater saphenous vein to the proximal thigh. 2. No evidence of deep venous thrombosis involving the right lower extremity. Electronically signed by: Johnny Sunshine MD 03/05/2024 01:02 PM [facility]
== END 2024-03-05 10:41 | disposition home or self-care (01) ==
LOC: HO.HMGCX 10:40
PROVIDERS: PCP Internal Medicine; Visit Provider Registered Nurse
DX: M79.661 Pain in right lower leg (principal); M79.89 Other specified soft tissue disorders; I80.01 Phlebitis and thrombophlebitis of superficial vessels of right lower extremity
CPT/HCPCS: 93971; 99212

== ENCOUNTER 2024-03-25 11:12 | Outpatient (AMB) | payer MEDICARE, SELFPAY ==
[2024-03-25 12:34] VITALS: BP 125/70; BMI 29.4
--- NOTE | 2024-03-25 12:34 | A.OFFPC_ITS ---
Vital Signs 03/25/24 12:34 Height 5 ft 10 in Weight 205 lb BMI 29.4 BP 125/70 Blood Pressure Location Lt brachial Position Sitting Intake Visit Reasons: f/u walkin Rt leg thrombus Intake Note: Pt is here today for a f/u walkin Rt leg thrombus Allergies No Known Allergies [No Known Allergies*] Allergy (Verified 03/25/24 12:56) Medication List - Last Reconciled 03/25/24 by Susanne Duarte MD blood pressure monitor check bloos pressure As directed blood pressure test kit-medium check blood pressure as directed once a day cholecalciferol (vitamin D3) 50 mcg PO DAILY lisinopril 5 mg PO DAILY mecobalamin (vitamin B12) mcg PO omega 1-qss-azo-fish oil 1,200 (144-216) mg (Fish Oil) caps PO Tobacco use date assessed: 03/25/24 Fall risk assessment: No Falls in past year Last assessed Fall Risk: 03/25/24 Dental Screening Dental Screen Date: 03/25/24 Did you have a dental visit in the last 12 months?: Yes Did you have a dental problem in the last 6 months where you did not have access to dental care?: No Was dental information given to patient?: Patient has dentist HPI f/u walkin Rt leg thrombus HPI Details - The patient is a 68-year-old male pres enting today for follow-up after recent visit at the walk-in clinic he was diagnosed with superficial thrombophlebitis. It initially presented as a region of discomfort on the right leg, painful upon palpation, - An ultrasound confirmed inflammation w ithout evidence of a deep vein thrombosis. -Has been wearing compression socks an d taking Aleve, which he takes as needed for pain and elevating his legs which has afforded resolution of swelling and lessening of the pain and redness. [facility] Medical History (Updated 03/25/24 @ 13:03 by Susanne Duarte MD) Superficial thrombophlebitis of right leg Varicose veins of right lower extremity with pain Positional lightheadedness Annual visit for general adult medical examination with abnormal findings Varicose vein of leg De Quervain's tenosynovitis, left History of squamous cell carcinoma Dyslipidemia Essential hypertension Vertigo Surgical History H/O umbilical hernia repair Hx of colonoscopy Family History Daughter Mental health disorder Basal cell carcinoma (BCC) of ken ugarte Other Unknown family medical history Social History Housing: House Alcohol intake: current Alcohol intake frequency: a few times a month Patient Tobacco Use Status: Never used Tobacco e-Cigarette/Vaping Use: Never Used Current occupational status: employed Cognitive needs: No Hearing needs: No Vision needs: Yes Questionnaire PHQ-9 Over the last 2 weeks, how often have you been bothered by any of the following problems? 1. Little interest or pleasure in doing things: not at all 2. Feeling down, depressed, or hopeless: not at all 3. Trouble falling or staying asleep, or sleeping too much: not at all 4. Feeling tired or having little energy: not at all 5. Poor appetite or overeating: not at all 6. Feeling bad about yourself - or that you are a failure or have let yourself or your family down: not at all 7. Trouble concentrating on things, such as reading the newspaper or watching television: not at all 8. Moving or speaking so slowly that other people could have noticed. Or the opposite - being so fidgety or restless that you have been moving around a lot more than usual: not at all 9. Thoughts that you would be better off or of hurting yourself in some way: not at all Total score: 0 Source: Developed by Drs. Simon Apodaca, Davina Mart, Larry Macias and colleagues, with an educational from [employer]. Thrive Questionnaire Date Thrive assessed: 06/08/23 I am a: Patient What is your living situation today?: I have a steady place to live Within the past 12 months, did the food you bought not last and you didn't have the money to get more?: Never true Within the past 12 months, did you worry whether your food would run out before you got money to buy more?: Never true Do you have trouble paying for medicines?: No Do you have trouble getting transportation to medical appointments?: No Do you have trouble paying your heating and electricity bill?: No Do you have trouble taking care of your child, family member or friend?: No Do you have trouble with day-to-day activities such as bathing, preparing meals, shopping, managing finances, etc.?: No Are you currently unemployed and looking for a job?: No Are you interested in more education?: No Please select the resources that you would like help with: None Currently or been in a relationship where the following occur: No concerns reported THRIVE Score: 0 AUDIT C Alcohol Use Questionnaire (AUDIT-C) 1. How often do you have a drink containing alcohol?: 2-4 times a month 2. How many drinks containing alcohol do you have on a typical day when you are drinking?: 1 or 2 3. How often do you have six or more drinks on one occasion?: Never Total Score: 2 MELINDA-7 AMB Questionnaire MELINDA-7 Date MELINDA - 7 assessed: 06/08/23 Feeling nervous, anxious, or on edge: 0 = Not at all Not being able to stop or control worryin = Not at all Worrying too much about different things: 0 = Not at all Trouble relaxin = Not at all Being so restless that it is hard to sit still: 0 = Not at all Becoming easily annoyed or irritable: 0 = Not at all Feeling afraid as if something awful might happen: 0 = Not at all Total MELINDA-7 score (0-4 normal; 5-9 mild; 10-14 moderate; 15-21 severe): 0 Source: Developed by Drs. Simon Apodaca, Davina Mart, Larry Macias and colleagues, with an educational from [employer]. Review of Systems Const All systems reviewed & are unremarkable except as noted in HPI and below ENT Reports Normal hearing present Neuro Reports Normal hearing present Physical exam (Primary Care) Vital Signs: Last Vital Signs BP 125/70 03/25/24 12:34 BMI result Body Mass Index 29.4 BMI Assessment/Plan discussion: High BMI High, discussed plan: lifestyle, weight reduction, dietary, physical activity and alcohol moderation Tobacco/Smoking Status: Tobacco use Status Tobacco use date assessed 03/25/24 03/25/24 12:37 Patient Tobacco Use Status Never used Tobacco 03/25/24 12:37 e-Cigarette/Vaping Use Never Used 03/25/24 12:37 PHQ-9: PHQ-9 Score PHQ-9: Total score 0 03/25/24 12:58 Thrive Assessment: Date of Thrive Assessment Date Thrive assessed 06/08/23 03/25/24 12:37 Currently or been in a relationship where the following occur: No concerns reported Const General: comfortable, no acute distress and Physically active Nutritional Appearance: obese Orientation/consciousness: patient oriented x3 Eyes General: appearance normal, both eyes and all related structures Neck Neck: Yes full ROM, Yes no lymphadenopathy and Yes supple Resp Effort & Inspection: normal respiratory effort and able to speak in complete sentences Auscultation: clear to auscultation bilaterally Cardio Rate: regular rate Rhythm: regular rhythm Heart sounds: S1 normal heart sound present and S2 normal heart sound present Neuro General: patient oriented x3, gait normal, tone normal, moves all extremities, Normal light touch and pain sensation and no focal motor deficits Cranial nerves: Yes Normal hearing present Cognition (Neuro): normal cognition Gait exam (Neuro): Normal gait present Motor exam (neuro): 5/5 motor strength present throughout Extrem Other: Nonthrombosed varicose veins in right lower extremity, nontender General: Yes full ROM, Yes no joint enlargement, Yes no pedal edema, Yes no calf tenderness and Yes normal gait Coding Level of Care Code Est Pt Level 3 (74556) Diagnoses Varicose veins of right lower extremity with pain I83.811 Superficial thrombophlebitis of right leg I80.01 Assessment & Plan Assessment & Plan (1) Varicose veins of right lower extremity with pain: Code(s): I83.811 - Varicose veins of right lower extremity with pain Category: Medical (2) Superficial thrombophlebitis of right leg: Code(s): I80.01 - Phlebitis and thrombophlebitis of superficial vessels of right lower extremity Category: Medical Plan - Continue using compression stockings for the affected leg. - Elevate legs as often as possible to alleviate symptoms of thrombophlebitis. - Alternate between applying ice and heat as needed for leg discomfort. - Take Aleve once a day with food for up to a week if inflamed area remains painful.. - Follow up with a vascular specialist as discussed . 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
== END 2024-03-25 14:22 | disposition home or self-care (01) ==
PROVIDERS: PCP Internal Medicine; Visit Provider Internal Medicine
DX: I83.811 Varicose veins of right lower extremity with pain (principal); I80.01 Phlebitis and thrombophlebitis of superficial vessels of right lower extremity

== ENCOUNTER → 2024-03-25 11:12 | Outpatient (BNVA) | payer MEDICARE, SELFPAY | PROVIDERS: PCP Internal Medicine; Visit Provider Internal Medicine | DX: I83.811 Varicose veins of right lower extremity with pain (principal); I80.01 Phlebitis and thrombophlebitis of superficial vessels of right lower extremity | CPT/HCPCS: 96127; 99212 ==

== ENCOUNTER 2024-04-22 09:07 | Outpatient (AMB) | payer MEDICARE, SELFPAY ==
--- NOTE | 2024-04-22 09:20 | MHC.OFFVIS ---
Vital Signs 04/22/24 09:22 Height 5 ft 10 in Weight 205 lb BMI 29.4 Intake Visit Reasons: [employer] [facility] referral for phlebitis/thrombophlebitis/VV Intake Note: [employer] [facility] for VV w/ recent thrombophlebitis, pt states has been better since he has been wearing compression socks and also using warm compress. Pt did have US 03/05/24. Pt states that he has VV. Accompanied by: Self / Same As Patient Allergies No Known Allergies [No Known Allergies*] Allergy (Verified 04/22/24 09:27) HPI HPI [employer] [facility] referral for phlebitis/thrombophlebitis/VV: Details: Very pleasant 69-year-old gentleman patient presents for painful varicose veins. Complaints include pain over varicosities, swelling of lower extremities, cramping, fatigue, and heaviness of the lower extremities. 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 It is noted more so in right leg. Of note he quit smoking in the 1970s and is a nondiabetic Patient denies any previous venous surgery or injections. Patient denies any history of DVT/ PE. Unknown family history as he is adopted Patient does report an episode of thrombophlebitis dating back to 03/13/2024 and had an ultrasound on that date as well. It was negative for DVT Trial of compression includes - [id number] They now present for vascular evaluation regarding their varicose veins. [facility] Medical History Superficial thrombophlebitis of right leg Varicose veins of right lower extremity with pain Positional lightheadedness Annual visit for general adult medical examination with abnormal findings Varicose vein of leg De Quervain's tenosynovitis, left History of squamous cell carcinoma Dyslipidemia Essential hypertension Vertigo Surgical History H/O umbilical hernia repair Hx of colonoscopy Family History Daughter Mental health disorder Basal cell carcinoma (BCC) of ken ugarte Other Unknown family medical history Social History Housing: House Alcohol intake: current Alcohol intake frequency: a few times a month Patient Tobacco Use Status: Never used Tobacco e-Cigarette/Vaping Use: Never Used Current occupational status: employed Cognitive needs: No Hearing needs: No Vision needs: Yes Review of Systems Const Reports as per HPI ENT Reports no additional complaints Card Denies chest pain, Denies chest pain at rest and Denies chest pain with activity Resp Denies chest congestion and Denies cough GI Reports no additional complaints Musc Details: pain over varicosities, aching of lower extremities, swelling, cramping, heaviness and tiredness, itching Denies abnormal gait Skin/Breast Reports pruritus and Denies wounds Neuro Reports no additional complaints and Denies abnormal gait Psych Denies no additional complaints Physical Exam Vital Signs: BMI result Body Mass Index 29.4 Const General: cooperative, healthy appearing and comfortable Orientation/consciousness: oriented to person, oriented to place and oriented to time Neck Carotids: no bruits Chest Chest palpation & inspection: normal inspection of the chest and normal palpation of entire chest wall Resp Effort & Inspection: normal respiratory effort and able to speak in complete sentences Cardio Rate: regular rate Heart sounds: S1 normal heart sound present and S2 normal heart sound present Peripheral pulses: Peripheral pulses 2+ throughout GI Inspection: Yes normal to inspection Skin Other: +2 edema, large rope-like varicosities greater than 4 mm right calf CEAP Classification C4 - skin color changes Ep - Etiology Primary As - superficial veins P - reflux General skin exam: dry skin Neuro General: oriented to person, oriented to place and oriented to time Extrem Right lower extremity: full ROM, normal capillary refill and edema Left lower extremity: full ROM, normal capillary refill and edema Psych Mental Status: mental status grossly normal Assessment & Plan Assessment & Plan (1) Varicose veins of right lower extremity with inflammation: Code(s): I83.11 - Varicose veins of right lower extremity with inflammation Category: Medical Plan: In short, the patient has evidence of venous insufficiency. I have discussed the pathophysiology with the patient. In addition I have provided informational material regarding venous disease to the patient. We have discussed conservative measures including compression, elevation, and exercise. I have also provided a handout regarding appropriate use of compression stockings and where to purchase good compression stockings as well. I have taken the liberty of ordering venous insufficiency testing with the patient. They will follow up with me after testing. The patient had an opportunity to ask questions regarding the treatment plan. All questions were answered. Imaging studies, laboratory studies and physical exam results were discussed and reviewed in detail. No major barriers to understanding were identified. The patient expressed understanding and agreement with the above treatment plan. The patient is aware they should contact our office by phone for worsening of the current condition or the appearance of new symptoms. Thank you for allowing me to participate in the vascular care of this patient. If you have any questions or concerns regarding the treatment for the above condition please do not hesitate to contact me. The office telephone contact is [phone]. This note is constructed using voice recognition software. While every effort has been made to ensure accuracy, appeals referee errors may have been included. Thank you for allowing me to participate in the care of your patient. Yours sincerely, Christopher Tariq MD, FACS, R.P.V.I. Orders: Orders US venous duplex LE BI 1 Week I83.11 - Varicose veins of right lower extremity with inflammation Coding Level of Care Code New Pt Level 4 (46699) Diagnoses Varicose veins of right lower extremity with inflammation I83.11
[2024-04-22 09:22] VITALS: BMI 29.4
== END 2024-04-22 09:54 | disposition home or self-care (01) ==
PROVIDERS: PCP Internal Medicine; Visit Provider Surgery Vascular Surgery
DX: I83.11 Varicose veins of right lower extremity with inflammation (principal)
CPT/HCPCS: 99204

== ENCOUNTER → 2024-04-22 09:07 | Outpatient (BNVA) | payer MEDICARE, SELFPAY | PROVIDERS: PCP Internal Medicine; Visit Provider Surgery Vascular Surgery | DX: I83.11 Varicose veins of right lower extremity with inflammation (principal); Z87.891 Personal history of nicotine dependence | CPT/HCPCS: 99202 ==

== ENCOUNTER 2024-05-06 08:00 | Outpatient (REF) | payer MEDICARE, SELFPAY ==
--- NOTE | ~2024-05-06 | US_ITS ---
EXAMINATION: US LOWER EXTREMITY VENOUS (REFLUX EXAM), BILATERAL CLINICAL INFORMATION: Varices with inflammation, right lower extremity. COMPARISON: Ultrasound venous duplex right lower extremity dated March 05, 2024. TECHNIQUE: Color flow triplex imaging and compression Doppler was performed to evaluate both the deep and the superficial systems bilaterally. To evaluate the superficial system, the examination was performed in the upright position. Color-flow Doppler ultrasound and compression ultrasound were utilized. In addition, maneuvers were utilized to demonstrate reflux. FINDINGS: 1. DEEP VENOUS ULTRASOUND OF THE RIGHT LOWER EXTREMITY: Common Femoral Vein: Compressible, normal respiratory variation and augmented flow. Femoral Vein: Compressible, normal color flow and augmentation. Popliteal Vein: Compressible, normal augmentation. Deep Reflux: There is no evidence of reflux in the deep system in either the common femoral vein, superficial femoral or the popliteal vein. There is no evidence of a Duque's cyst. 2. SUPERFICIAL ULTRASOUND WITH DOPPLER OF RIGHT LOWER EXTREMITY: GREAT SAPHENOUS VEIN: Saphenofemoral Junction: 0.7 cm; Reflux: 0 ms Proximal Thigh: 0.6 cm; Reflux: 0 ms Mid Thigh: 0.6 cm; clotted. Distal Thigh: 0.6 cm; clotted. At Knee: 0.6 cm; clotted. Proximal Calf: 0.5 cm; clotted. Mid Calf: 0.3 cm; clotted. Distal Calf: 0.2 cm; clotted. DUPLICATED MEDIAL GREAT SAPHENOUS VEIN: Diameter: None imaged Reflux: NA DUPLICATED LATERAL GREAT SAPHENOUS VEIN: Diameter: None imaged Reflux: NA SMALL SAPHENOUS VEIN: Saphenopopliteal Junction: 0.2 cm; Reflux: 0 ms Proximal: 0.3 cm; Reflux: 0 ms Distal: 0.2 cm; Reflux: 0 ms VEIN OF GIACOMINI: Size: NA Reflux: NA PERFORATORS: Location: None imaged Size: NA Reflux: NA VARICOSITIES: Location: None imaged. Size: NA Reflux: NA 3. DEEP VENOUS ULTRASOUND OF THE LEFT LOWER EXTREMITY: Common Femoral Vein: Compressible, normal respiratory variation and augmented flow. Femoral Vein: Compressible, normal color flow and augmentation. Popliteal Vein: Compressible, normal augmentation. Deep Reflux: There is no evidence of reflux in the deep system in either the common femoral vein, superficial femoral or the popliteal vein. There is no evidence of a Duque's cyst. 4. SUPERFICIAL ULTRASOUND WITH DOPPLER OF LEFT LOWER EXTREMITY: GREAT SAPHENOUS VEIN: Saphenofemoral Junction: 0.9 cm; Reflux: 0 ms Proximal Thigh: 0.5 cm; Reflux: More than 2348 ms Mid Thigh: 0.3 cm; Reflux: More than 2108 ms Distal Thigh: 0.2 cm; Reflux: More than 1956 ms At Knee: 0.3 cm; Reflux: 1596 ms Proximal Calf: 0.4 cm; Reflux: 856 ms Mid Calf: 0.2 cm; Reflux: 0 ms Distal Calf: 0.3 cm; Reflux: 0 ms DUPLICATED MEDIAL GREAT SAPHENOUS VEIN: Diameter: None imaged Reflux: NA DUPLICATED LATERAL GREAT SAPHENOUS VEIN: Diameter: None imaged. Reflux: NA SMALL SAPHENOUS VEIN: Saphenopopliteal Junction: 0.4 cm; Reflux: 0 ms Proximal: 0.3 cm; Reflux: 0 ms Distal: 0.3 cm; Reflux: 0 ms VEIN OF GIACOMINI: Size: NA Reflux: NA PERFORATORS: Location: None imaged Size: NA Reflux: NA VARICOSITIES: Location: None Imaged Size: NA Reflux: NA US/US venous duplex LE BI IMPRESSION: Right: Occluded great saphenous vein from the mid thigh to the mid calf. Venous insufficiency at the level of the ankle . Left: Venous insufficiency from the proximal thigh to below knee. The requesting physician Dr. Christopher Tariq was notified by the lead cytogenetic technologist at the time of the examination. Electronically signed by: Crispin Warren MD 05/12/2024 07:25 AM [facility] [place]
== END 2024-05-06 08:01 | disposition home or self-care (01) ==
LOC: HO.US 08:00
PROVIDERS: PCP Internal Medicine; Visit Provider Surgery Vascular Surgery
DX: I83.11 Varicose veins of right lower extremity with inflammation (principal)
CPT/HCPCS: 93970

== ENCOUNTER → 2024-05-06 08:02 | Outpatient (BNV) | payer MEDICARE, SELFPAY | PROVIDERS: PCP Internal Medicine; Visit Provider Radiology Diagnostic Radiology | DX: I83.11 Varicose veins of right lower extremity with inflammation (principal) | CPT/HCPCS: 93970 ==

== ENCOUNTER → 2024-05-20 09:43 | Outpatient (BNVA) | payer MEDICARE, SELFPAY | PROVIDERS: PCP Internal Medicine; Visit Provider Surgery Vascular Surgery | DX: I83.11 Varicose veins of right lower extremity with inflammation (principal) | CPT/HCPCS: 99212 ==

== ENCOUNTER 2024-06-09 10:49 | Outpatient (REF) | payer MEDICARE, SELFPAY ==
[2024-06-09 14:22] LABS: Prostate Specific Antigen 3.77 ng/mL (<0.05-4.0)
== END 2024-06-09 10:50 | disposition home or self-care (01) ==
LOC: HO.HMGCLDS 10:49
PROVIDERS: PCP Internal Medicine; Visit Provider Nurse Practitioner Family
DX: N40.1 Benign prostatic hyperplasia with lower urinary tract symptoms (principal); R39.11 Hesitancy of micturition; Z12.5 Encounter for screening for malignant neoplasm of prostate
CPT/HCPCS: 36415; 84153

== ENCOUNTER 2024-06-10 08:26 | Outpatient (AMB) | payer MEDICARE, SELFPAY ==
--- NOTE | 2024-06-10 08:46 | A.OFFVIS_ITS ---
Intake Visit Reasons: 9m/PSA Intake Note: Patient presents for follow up visit for urinary frequency and psa results PSA: 3.77 Urology Medications: none Blood Thinner: none PVR: 55ml's Senior Sustainability Advisor Required: No Accompanied by: Self / Same As Patient Allergies No Known Allergies [No Known Allergies*] Allergy (Verified 06/10/24 09:23) Medication List - Last Reconciled 06/10/24 by JONATHAN Anthony- blood pressure monitor check bloos pressure As directed blood pressure test kit-medium check blood pressure as directed once a day cholecalciferol (vitamin D3) 50 mcg PO DAILY lisinopril 5 mg PO DAILY mecobalamin (vitamin B12) mcg PO omega 3-tcf-plm-fish oil 1,200 (144-216) mg (Fish Oil) caps PO HPI Comments Details: Salomon is a 69-year-old male patient of Dr. Duarte. 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 He presents to the office today for a follow up. In discussion with the patient today he reports to be doing and feeling well. He denies having had any bothersome urinary issues or concerns since his last office visit here. Patient discusses his main concern is that he does not have any family history as he was adopted and would like to continue with surveillance monitoring of PSA as well as lower urinary tract symptoms. Previous workup has included a retroperitoneal ultrasound 08/07 noting bilateral kidneys with no calculi, lesions, and or hydronephrosis. The bladder is well distended and normal.Bilateral ureteral jets are demonstrated. Prevoid bladder volume is 354 mL. Postvoid bladder volume is 100 mL. Prostate is mildly enlarged with a volume of approximately 27 mL. He does report/note over the last 3-5 years worsening of weak urinary stream, urinary hesitancy, and urinary frequency. However he does not find these urinary symptoms bothersome at this time. PSAs are as follows: 11/03 2.0, 11/04 3.8, 06/09 3.0, 06/10 3.8 He otherwise denies urinary urgency,incontinence, nocturia, hematuria, dysuria, flank pain, fever, and or chills. In office urinalysis results reviewed with the patient today. PVR 55 mL. He discusses upcoming procedure with Dr. Tariq for varicose veins to his right lower extremity He otherwise denies any other issues or concerns at this time. [facility] Medical History Superficial thrombophlebitis of right leg Varicose veins of right lower extremity with pain Positional lightheadedness Annual visit for general adult medical examination with abnormal findings Varicose vein of leg De Quervain's tenosynovitis, left History of squamous cell carcinoma Dyslipidemia Essential hypertension Vertigo Surgical History H/O umbilical hernia repair Hx of colonoscopy Family History Daughter Mental health disorder Basal cell carcinoma (BCC) of ken ugarte Other Unknown family medical history Social History Housing: House Alcohol intake: current Alcohol intake frequency: a few times a month Patient Tobacco Use Status: Never used Tobacco e-Cigarette/Vaping Use: Never Used Current occupational status: employed Cognitive needs: No Hearing needs: No Vision needs: Yes Review of Systems Const Reports no additional complaints Eyes Reports no additional complaints ENT Reports no additional complaints Card Reports as per HPI Resp Reports no additional complaints GI Reports no additional complaints Reports as per HPI Skin/Breast Reports as per HPI Neuro Reports no additional complaints Psych Reports no additional complaints Endo Reports no additional complaints Kevin/Lymph Reports no additional complaints Aller/Immun Reports no additional complaints Physical Exam Const General: cooperative, healthy appearing, comfortable, no acute distress, well developed, alert and awake Orientation/consciousness: patient oriented x3 Limitations: no limitations HEENT Head: Yes normal to inspection, Yes normocephalic and Yes atraumatic Ears: hearing grossly normal bilaterally Eyes General: appearance normal, both eyes and all related structures Neck Neck: Yes normal visual inspection and Yes trachea midline Chest Chest palpation & inspection: normal inspection of the chest Resp Effort & Inspection: normal respiratory effort and able to speak in complete sentences Cardio Rate: regular rate GI Inspection: Yes normal to inspection General: Yes no CVA tenderness Back/Spine/Pelvis Back: no CVA tenderness Skin General skin exam: no rashes or lesions noted Neuro General: patient oriented x3 Extrem General: Yes normal to inspection Psych Appearance: grossly normal and well kempt Mental Status: mental status grossly normal Speech and movement: Normal speech and movement present and Clear speech present Affect: normal affect Attitude: cooperative Thought process: Normal thought process present Thought content: Normal thought content present Insight: Fair insight present (Psych) Judgement: Fair judgement present (Psych) Office Procedures Post Void Residual Post Residual Void Post Void Residual (PVR): 55 [id number] Void Residual by ultrasound Results AMB Urinalysis, Automated UA Leukoctes 0 Leonie/uL Last Edit by Michael Yanes on 06/10/24 09:04 UA Nitrite Last Edit by Michael Yanes on 06/10/24 09:04 UA Urobilinogen 0.2 mg/dL Last Edit by Michael Yanes on 06/10/24 09:04 UA Protein 0 mg/dL Last Edit by Michael Yanes on 06/10/24 09:04 UA pH 6.0 Last Edit by Michael Yanes on 06/10/24 09:04 UA Blood 0 Thomas/uL Last Edit by Michael Yanes on 06/10/24 09:04 UA Specific Holden 1.020 Last Edit by [employer] Yanes on 06/10/24 09:04 UA Ketone Last Edit by Michael Yanes on 06/10/24 09:04 UA Bilirubin 0 mg/dL Last Edit by [employer] [facility] on 06/10/24 09:04 UA Glucose 0 mg/dL Last Edit by [employer] on 06/10/24 09:04 Results Reviewed Results Reviewed: Laboratory Last Values Urine pH (Auto) 6.0 06/10/24 09:03 Specific Holden (Auto) 1.020 06/10/24 09:03 Urine Protein (Auto) 0 mg/dL 06/10/24 09:03 Glucose (UA)(Auto) 0 mg/dL 06/10/24 09:03 Urine Blood (Auto) 0 Thomas/uL 06/10/24 09:03 Urine Bilirubin (Auto) 0 mg/dL 06/10/24 09:03 Urine Urobilinogen (Auto) 0.2 mg/dL 06/10/24 09:03 Leukocyte Esterase (Auto) 0 Leonie/uL 06/10/24 09:03 Assessment & Plan Assessment & Plan (1) Weak urinary stream: Code(s): R39.12 - Poor urinary stream Category: Medical (2) Urinary hesitancy due to benign prostatic hyperplasia: Code(s): N40.1 - Benign prostatic hyperplasia with lower urinary tract symptoms; R39.11 - Hesitancy of micturition Category: Medical (3) Urinary frequency: Code(s): R35.0 - Frequency of micturition Category: Medical Plan In office urinalysis results reviewed with the patient today; as noted above. PVR 55 mL. Recent PSA results reviewed with the patient today; as noted above. Patient does report noting lower urinary tract symptoms however does not feel these are bothersome for him at this time. Discussed possible near future in office cystoscopy and or urodynamics for further assessment evaluation if symptoms arise. Discussed lifestyle modifications to assist with lower urinary tract symptoms patient is experiencing. Discussed bladder triggers/irritants. Obtain PSA in 1 year Follow-up in 1 year with PSA and PVR; or sooner with any issues, concerns, and or questions. Orders: Orders Prostate Specific Antigen 1 Year N40.1 - Benign prostatic hyperplasia with lower urinary tract symptoms, R35.0 - Frequency of micturition, R39.11 - Hesitancy of micturition, R39.12 - Poor urinary stream AMB Urinalysis Automated Today Z13.9 - Encounter for screening, unspecified AMB Post Void Residual by ultrasound Today R35.0 - Frequency of micturition Patient Instructions: The patient had an opportunity to ask questions regarding the treatment plan. All questions were answered. Physical exam, labs, and imaging were discussed and reviewed in detail. As well as risks, benefits, and discussion of treatment choices. No major barriers to understanding were identified. The patient expressed understanding and agreement with the above treatment plan. The patient was made aware they should contact our office by phone for worsening of their current condition, the appearance of new symptoms, or with any questions or concerns. Compliance is encouraged with any medications and follow up testing that is ordered. It is a privilege to be allowed the opportunity to participate in? your urological care.? Again, if you have any questions or concerns If you have any questions or concerns please do not hesitate to contact me. The office is [phone]. This note is constructed using voice recognition software. While every effort has been made to ensure accuracy patient services clerk errors may have been included. Yours sincerely, JILLIAN Anthony Coding Level of Care Code Est Pt Level 3 (07619) Diagnoses Weak urinary stream R39.12 Urinary hesitancy due to benign prostatic hyperplasia N40.1; R39.11 Urinary frequency R35.0 CPT Codes Post Residual Void - PVR CPT Code: 15316-Vdyq Void Residual by ultrasound ([id number])
== END 2024-06-10 09:26 | disposition home or self-care (01) ==
PROVIDERS: PCP Internal Medicine; Visit Provider Nurse Practitioner Family
DX: N40.1 Benign prostatic hyperplasia with lower urinary tract symptoms (principal); R39.12 Poor urinary stream; R39.11 Hesitancy of micturition; R35.0 Frequency of micturition; Z13.9 Encounter for screening, unspecified
CPT/HCPCS: 99213

== ENCOUNTER → 2024-06-10 08:26 | Outpatient (BNVA) | payer MEDICARE, SELFPAY | PROVIDERS: PCP Internal Medicine; Visit Provider Nurse Practitioner Family | DX: N40.1 Benign prostatic hyperplasia with lower urinary tract symptoms (principal); R35.0 Frequency of micturition; R39.12 Poor urinary stream; R39.11 Hesitancy of micturition | CPT/HCPCS: 51798; 81003; 99212 ==

== ENCOUNTER 2024-06-12 08:48 | Outpatient (AMB) | payer MEDICARE, SELFPAY ==
[2024-06-12 08:59] VITALS: BP 130/86; PULSE 88; RESP 16; TEMP 36.7; O2SAT 98
--- NOTE | 2024-06-12 08:59 | A.OFFPC_ITS ---
Vital Signs 06/12/24 08:59 Height 5 ft 10 in Weight 209 lb BMI 30.0 BP 130/86 Blood Pressure Location Rt brachial Position Sitting Respiration 16 Pulse 88 Pulse Source Pulse Oximeter Temp 98.0 F Temp Source Oral Pulse Oximetry (%) 98 Oxygen Delivery Method Room Air Intake Visit Reasons: Physical exam Intake Note: Pt is here today for his PE: Last colonoscopy 11/11/21 Allergies No Known Allergies [No Known Allergies*] Allergy (Verified 06/12/24 09:16) Medication List - Last Reconciled 06/12/24 by Susanne Duarte MD blood pressure monitor check bloos pressure As directed blood pressure test kit-medium check blood pressure as directed once a day cholecalciferol (vitamin D3) 50 mcg PO DAILY lisinopril 5 mg PO DAILY mecobalamin (vitamin B12) mcg PO omega 8-app-rdb-fish oil 1,200 (144-216) mg (Fish Oil) caps PO Tobacco use date assessed: 06/12/24 Fall risk assessment: No Falls in past year Last assessed Fall Risk: 06/12/24 Dental Screening Dental Screen Date: 06/12/24 Did you have a dental visit in the last 12 months?: No Did you have a dental problem in the last 6 months where you did not have access to dental care?: No Was dental information given to patient?: No HPI Physical exam HPI Details 69-year-old male with history of hyperte nsion, varicose veins in right lower extremity with supra history of superficial thrombophlebitis, benign prostatic hyperplasia, osteoarthritis, and dyslipidemia, here today for physical exam. He had a Cologuard test don in 2021 which came back negative. Blood pressure stable and controlled on present treatment with lisinopril 5 mg daily.. Followed at Urology, by Dr. Hearn for BPH, with last PSA within normal limits He is up-to-date with the shingles vaccination, pneumonia vaccine, Tdap, but has not yet had his flu vaccine for this year or his COVID booster. He sees Dr. Tariq for his varicose veins mainly in the right lower extremity and is scheduled for right great saphenous vein radiofrequency ablation tomorrow. Complains of intermittent pain and stiffness across his right middle back, worse with getting up from sitting position. Comes and goes. At present is currently asymptomatic. [facility] Medical History (Updated 06/12/24 @ 09:43 by Susanne Duarte MD) Superficial thrombophlebitis of right leg Varicose veins of right lower extremity with pain Positional lightheadedness Annual visit for general adult medical examination with abnormal findings Varicose vein of leg De Quervain's tenosynovitis, left History of squamous cell carcinoma Dyslipidemia Essential hypertension Vertigo Surgical History H/O umbilical hernia repair Hx of colonoscopy Family History Daughter Mental health disorder Basal cell carcinoma (BCC) of ken ugarte Other Unknown family medical history Social History Housing: House Alcohol intake: current Alcohol intake frequency: a few times a month Patient Tobacco Use Status: Never used Tobacco e-Cigarette/Vaping Use: Never Used Current occupational status: employed Cognitive needs: No Hearing needs: No Vision needs: Yes Questionnaire PHQ-9 Over the last 2 weeks, how often have you been bothered by any of the following problems? 1. Little interest or pleasure in doing things: several days 2. Feeling down, depressed, or hopeless: not at all 3. Trouble falling or staying asleep, or sleeping too much: not at all 4. Feeling tired or having little energy: not at all 5. Poor appetite or overeating: not at all 6. Feeling bad about yourself - or that you are a failure or have let yourself or your family down: not at all 7. Trouble concentrating on things, such as reading the newspaper or watching television: not at all 8. Moving or speaking so slowly that other people could have noticed. Or the opposite - being so fidgety or restless that you have been moving around a lot more than usual: not at all 9. Thoughts that you would be better off or of hurting yourself in some way: not at all Total score: 1 Depression Screening Interpretation: Negative Depression Screening Done: Yes 30516 - PHQ-9 Billing: Yes Source: Developed by Drs. Simon Apodaca, Davina Mart, Larry Macias and colleagues, with an educational from [employer]. Thrive Questionnaire Date Thrive assessed: 06/12/24 I am a: Patient What is your living situation today?: I have a steady place to live Within the past 12 months, did the food you bought not last and you didn't have the money to get more?: Never true Within the past 12 months, did you worry whether your food would run out before you got money to buy more?: Never true Do you have trouble paying for medicines?: No Do you have trouble getting transportation to medical appointments?: No Do you have trouble paying your heating and electricity bill?: No Do you have trouble taking care of your child, family member or friend?: No Do you have trouble with day-to-day activities such as bathing, preparing meals, shopping, managing finances, etc.?: No Are you currently unemployed and looking for a job?: No Are you interested in more education?: No Please select the resources that you would like help with: None Currently or been in a relationship where the following occur: No concerns reported THRIVE Score: 0 AUDIT C Alcohol Use Questionnaire (AUDIT-C) 1. How often do you have a drink containing alcohol?: 2-4 times a month 2. How many drinks containing alcohol do you have on a typical day when you are drinking?: 1 or 2 3. How often do you have six or more drinks on one occasion?: Never Total Score: 2 MELINDA-7 AMB Questionnaire MELINDA-7 Date MELINDA - 7 assessed: 06/12/24 Feeling nervous, anxious, or on edge: 0 = Not at all Not being able to stop or control worryin = Not at all Worrying too much about different things: 0 = Not at all Trouble relaxin = Not at all Being so restless that it is hard to sit still: 0 = Not at all Becoming easily annoyed or irritable: 0 = Not at all Feeling afraid as if something awful might happen: 0 = Not at all Total MELINDA-7 score (0-4 normal; 5-9 mild; 10-14 moderate; 15-21 severe): 0 Source: Developed by Drs. Simon Apodaca, Davina Mart, Larry Macias and colleagues, with an educational from [employer]. Review of Systems Const Denies body aches, Denies fatigue, Denies fever(s), Denies headache(s) and Denies weakness Eyes Denies change in vision ENT Reports Normal hearing present, Denies dizziness, Denies headache(s), Denies nasal congestion and Denies nasal discharge Card Denies chest pain, Denies lightheadedness, Denies palpitations and Denies d yspnea Resp Denies chest congestion, Denies cough, Denies dyspnea and Denies wheezing GI Denies abdominal pain, Denies change in bowel habits and Denies heartburn Denies hematuria, Denies difficulty urinating, Denies dysuria, Denies urinary frequency and Denies urinary urgency Musc Reports as per HPI Skin/Breast Denies lesions and Denies rash Neuro Reports Normal hearing present, Denies dizziness, Denies headache(s) and Denies weakness Psych Reports no additional complaints Endo Denies fatigue, Denies polydipsia, Denies polyuria and Denies palpitations Kevin/Lymph Denies easy bruising Aller/Immun Denies seasonal rhinorrhea and Denies wheezing Physical exam (Primary Care) Vital Signs: Last Vital Signs Temp 98.0 F 06/12/24 08:59 Pulse 88 06/12/24 08:59 Resp 16 06/12/24 08:59 BP 130/86 06/12/24 08:59 Pulse Ox 98 06/12/24 08:59 Oxygen Delivery Method Room Air 06/12/24 08:59 BMI result Body Mass Index 30.0 BMI Assessment/Plan discussion: High BMI High, discussed plan: lifestyle, weight reduction, dietary, physical activity and alcohol moderation Tobacco/Smoking Status: Tobacco use Status Tobacco use date assessed 06/12/24 06/12/24 09:01 Patient Tobacco Use Status Never used Tobacco 06/12/24 09:01 e-Cigarette/Vaping Use Never Used 06/12/24 09:01 PHQ-9: PHQ-9 Score PHQ-9: Total score 1 06/12/24 09:01 Depression Screening Interpretation: Negative Thrive Assessment: Date of Thrive Assessment Date Thrive assessed 06/12/24 06/12/24 09:01 Currently or been in a relationship where the following occur: No concerns reported Advance Care Planning discussion: Completed/Scanned Date of discussion: 06/12/24 Who was present: Patient Forms completed: Health Care Proxy and MOLST Time spent: 16-45 minutes Actual minutes spent: 16 Const General: no acute distress and Physically active Nutritional Appearance: obese Orientation/consciousness: patient oriented x3 HENMT Head: Yes normocephalic Ears: hearing grossly normal bilaterally, external ears normal, TM's normal bilaterally and EAC's normal General nose exam: Normal external nose present Face and sinus: Yes face symmetric Mouth: Normal oral and palatal mucosa present, oropharynx normal and moist mucous membranes Eyes General: appearance normal, both eyes and all related structures Neck Neck: Yes full ROM, Yes no lymphadenopathy and Yes supple Chest Chest palpation & inspection: normal inspection of the chest Resp Effort & Inspection: normal respiratory effort and able to speak in complete sentences Auscultation: clear to auscultation bilaterally Cardio Rate: regular rate Rhythm: regular rhythm Heart sounds: S1 normal heart sound present and S2 normal heart sound present Bruits: no abdominal aortic bruits GI Inspection: Yes normal to inspection Palpation (GI): No Abdominal aortic bruit present, Soft to palpation, nontender, no guarding, hepatosplenomegaly present and no masses General: Yes no CVA tenderness Male General Exam: Yes normal external exam Back/Spine/Pelvis Back: no CVA tenderness Thoracic/Lumbar Spine: thoracic and lumbar spine normal to inspection and straight leg raise negative bilaterally Skin General skin exam: no rashes or lesions noted Neuro General: patient oriented x3, gait normal, tone normal, moves all extremities, Normal light touch and pain sensation and no focal motor deficits Cranial nerves: Yes Normal hearing present Cognition (Neuro): normal cognition Gait exam (Neuro): Normal gait present Motor exam (neuro): 5/5 motor strength present throughout Extrem Other: Nonthrombosed varicose veins in right lower extremity, nontender General: Yes full ROM, Yes no joint enlargement, Yes no pedal edema, Yes no calf tenderness and Yes normal gait Psych Appearance: grossly normal and well kempt Mental Status: mental status grossly normal Speech and movement: Normal speech and movement present Affect: normal affect Coding Level of Care Code Est Pt Prev Care >65y(75027) Diagnoses Annual visit for general adult medical examination with abnormal findings Z00.01 Essential hypertension I10 Dyslipidemia E78.5 Varicose veins of right lower extremity with pain I83.811 Advanced directives, counseling/discussion Z71.89 Additional Codes PHQ-9 - 20018 - PHQ-9 Billing: Yes ([id number]) Vital Signs *Quality* - Advance Care Planning discussion: Completed/Scanned ([id number]) Vital Signs *Quality* - Time spent: 16-45 minutes ([id number]) Assessment & Plan Assessment & Plan (1) Annual visit for general adult medical examination with abnormal findings: Code(s): Z00.01 - Encounter for general adult medical examination with abnormal findings Category: Medical Plan: Will check appropriate labs. Recommended dental visit every 6 months and regular eye exams, at least every 2 years. Take adequate calcium in diet and vitamin-D 3 at 2000 IU per cap once a day, in addition to weight-bearing exercises to help maintain good muscle tone and weight control. Do self- testicular exam check for any mass, followed by Urology for benign prostatic hyperplasia. Up-to-date with his colon cancer screening, last Cologuard test done was negative in 2021. Up-to-date with all his vaccines but did not get his COVID booster and flu vaccine this year. (2) Essential hypertension: Code(s): I10 - Essential (primary) hypertension Category: Medical Plan: Blood pressure at goal of less than 130/80. Continue with lisinopril 5 mg daily Reinforced importance of following a low sodium diet, getting regular exercise, and lowering stress levels. (3) Dyslipidemia: Code(s): E78.5 - Hyperlipidemia, unspecified Category: Medical Plan: Fasting lipid ordered. Reinforced importance of following a low-cholesterol diet and getting regular exercise. (4) Varicose veins of right lower extremity with pain: Code(s): I83.811 - Varicose veins of right lower extremity with pain Category: Medical Plan: Scheduled for right great saphenous vein radiofrequency ablation. With Dr. Tariq tomorrow (5) Advanced directives, counseling/discussion: Code(s): Z71.89 - Other specified counseling Plan: Initiated the conversation about Advanced Directives. Advanced Directives help patients prepare for current and future decisions about their medical treatment and place of care. Discussed with patient that it is a process where a patients current condition and prognosis are reviewed, their wishes for information regarding their illness are elicited, and likely medical dilemmas are presented and options discussed. Healthcare proxy form and form completed. These formscan be amended as needed, reviewed yearly and make changes as needed Orders: Orders Lipid Panel Today E78.5 - Hyperlipidemia, unspecified, I10 - Essential (primary) hypertension, I83.11 - Varicose veins of right lower extremity with inflammation, M17.11 - Unilateral primary osteoarthritis, right knee, Z00.01 - Encounter for general adult medical examination with abnormal findings Aspartate Amino Transferase Today E78.5 - Hyperlipidemia, unspecified, I10 - Essential (primary) hypertension, I83.11 - Varicose veins of right lower extremity with inflammation, M17.11 - Unilateral primary osteoarthritis, right knee, Z00.01 - Encounter for general adult medical examination with abnormal findings Basic Metabolic Panel Fasting Today E78.5 - Hyperlipidemia, unspecified, I10 - Essential (primary) hypertension, I83.11 - Varicose veins of right lower extremity with inflammation, M17.11 - Unilateral primary osteoarthritis, right knee, Z00.01 - Encounter for general adult medical examination with abnormal findings Vitamin B12 and Folate Today E78.5 - Hyperlipidemia, unspecified, I10 - Essential (primary) hypertension, I83.11 - Varicose veins of right lower extremity with inflammation, M17.11 - Unilateral primary osteoarthritis, right knee, Z00.01 - Encounter for general adult medical examination with abnormal findings Alanine Aminotransferase Today E78.5 - Hyperlipidemia, unspecified, I10 - Essential (primary) hypertension, I83.11 - Varicose veins of right lower extremity with inflammation, M17.11 - Unilateral primary osteoarthritis, right knee, Z00.01 - Encounter for general adult medical examination with abnormal findings Vitamin D 25-OH Total Today E78.5 - Hyperlipidemia, unspecified, I10 - Essential (primary) hypertension, I83.11 - Varicose veins of right lower extremity with inflammation, M17.11 - Unilateral primary osteoarthritis, right knee, Z00.01 - Encounter for general adult medical examination with abnormal findings
== END 2024-06-12 09:46 | disposition home or self-care (01) ==
PROVIDERS: PCP Internal Medicine; Visit Provider Internal Medicine
DX: Z00.01 Encounter for general adult medical examination with abnormal findings (principal); I10 Essential (primary) hypertension; E78.5 Hyperlipidemia, unspecified; I83.811 Varicose veins of right lower extremity with pain; Z71.89 Other specified counseling

== ENCOUNTER → 2024-06-12 08:48 | Outpatient (BNVA) | payer MEDICARE, SELFPAY | PROVIDERS: PCP Internal Medicine; Visit Provider Internal Medicine | DX: Z00.01 Encounter for general adult medical examination with abnormal findings (principal); I10 Essential (primary) hypertension; E78.5 Hyperlipidemia, unspecified; I83.811 Varicose veins of right lower extremity with pain; Z71.89 Other specified counseling | CPT/HCPCS: 96127; 99397; 99497 ==

== ENCOUNTER 2024-06-13 07:11 | Outpatient (AMB) | payer MEDICARE, SELFPAY ==
--- NOTE | 2024-06-13 07:36 | MHC.OFFVIS ---
Vital Signs 06/13/24 07:36 Height 5 ft 10 in Weight 209 lb BMI 30.0 Intake Visit Reasons: Right GSV RFA Accompanied by: Self / Same As Patient Allergies No Known Allergies [No Known Allergies*] Allergy (Verified 06/13/24 07:37) PFSH Medical History Superficial thrombophlebitis of right leg Varicose veins of right lower extremity with pain Positional lightheadedness Annual visit for general adult medical examination with abnormal findings Varicose vein of leg De Quervain's tenosynovitis, left History of squamous cell carcinoma Dyslipidemia Essential hypertension Vertigo Surgical History H/O umbilical hernia repair Hx of colonoscopy Family History Daughter Mental health disorder Basal cell carcinoma (BCC) of ken ugarte Other Unknown family medical history Social History Housing: House Alcohol intake: current Alcohol intake frequency: a few times a month Patient Tobacco Use Status: Never used Tobacco e-Cigarette/Vaping Use: Never Used Current occupational status: employed Cognitive needs: No Hearing needs: No Vision needs: Yes Physical Exam Vital Signs: BMI result Body Mass Index 30.0 Office Procedures Vascular Office Procedure Details Details: Diagnosis: Varicose veins with inflammation of right leg Procedure: Endovenous radiofrequency ablation of the right great saphenous vein(s) of the lower extremity with Venclose RF ablation Anesthesia: Local infiltration 5 cc, Tumescent 200 cc. Supervisor Fireworks Assembly: None Estimated Blood Loss: Minimal The patient was transferred to the procedure suite and the insufficient saphenous vein was mapped by ultrasound and diagrammed on the overlying skin. The depth and diameter of the vein(s) to be treated was documented. The varicose tributary veins and suitable access sites were identified and mapped as well. The patient was then positioned supine on the procedure table. The affected limb was prepped and draped in the usual sterile fashion. The RF catheter was placed on the sterile field, flushed and wiped down, prepared, and connected by a sterile cable. The patient was placed in a supine position and local anesthesia was instilled in the skin overlying the access site. A skin incision was made overlying the identified and mapped great saphenous vein entry site. The vein was accessed using ultrasound guidance and the Seldinger technique, a guide wire was introduced through the needle, which was then exchanged over the guide wire for a 6F sheath, which was secured in place. The guide wire was removed and the sheath was flushed. The RF catheter was placed into the vein through the sheath and preferentially, imaging was used to place the catheter tip just inferior to the superficial epigastric vein to preserve normal physiological flow in that vein. Additionally, it was confirmed by ultrasound guidance that the catheter tip was also placed a minimum of 1.5cm distal to the saphenofemoral junction. After the RF catheter position was verified by ultrasound, tumescent anesthesia was infiltrated, under ultrasound guidance, precisely into the perivenous compartment along the entire length of vein from the entry site to the saphenofemoral junction until a halo of fluid was noted around the vein. The patient was appropriately position. After RF catheter position was again confirmed with ultrasound imaging, and under direct external compression along the length of the heating element, RF energy was applied. The vein was segmentally ablated by heating a 10 cm segment and then indexing the catheter forward by 9.5 cm until the treatment length is completed. Device temperature was maintained at 120 plus or minus 5 degrees C with an initial power level of 4W/cm dropping to below 2W/cm for each treatment. Total vein length treated 12.5 cm Total cycles of RF 3. Repeat ultrasound of the saphenous vein was performed, confirming successful treatment. The catheter and sheath were withdrawn and hemostasis established with direct pressure. After assuring hemostasis, the skin incision over the saphenous vein was closed with a steristip and a compression wrap was applied from the level of the foot to the most proximal level of the thigh. Discharge instructions were given to the patient inclusive of follow-up ultrasound and recommended follow-up with us. 36737 - Endovenous RF, 1st Vein All charges added?: Procedure code (CPT) selection complete Assessment & Plan Assessment & Plan (1) Varicose veins of right lower extremity with inflammation: Comment: 06/13/2024 - right great saphenous vein radiofrequency ablator Code(s): I83.11 - Varicose veins of right lower extremity with inflammation Category: Medical Plan: See op note Coding Level of Care Code Procedure Only Diagnoses Varicose veins of right lower extremity with inflammation I83.11 CPT Codes Details - Vascular 1: 64617 - Endovenous RF, 1st Vein ([id number])
== END 2024-06-13 08:50 | disposition home or self-care (01) ==
PROVIDERS: PCP Internal Medicine; Visit Provider Surgery Vascular Surgery
DX: I83.11 Varicose veins of right lower extremity with inflammation (principal)
CPT/HCPCS: 36475

== ENCOUNTER → 2024-06-13 07:11 | Outpatient (BNVA) | payer MEDICARE, SELFPAY | PROVIDERS: PCP Internal Medicine; Visit Provider Surgery Vascular Surgery | DX: I83.11 Varicose veins of right lower extremity with inflammation (principal) | CPT/HCPCS: 36475; J2003; J2004 ==

== ENCOUNTER 2024-06-26 08:56 | Outpatient (AMB) | payer MEDICARE, SELFPAY ==
--- NOTE | 2024-06-26 09:16 | MHC.OFFVIS ---
Intake Visit Reasons: 2 week follow up R GSV RFA Intake Note: Patient presents for 2 week follow up right gsv rfa. Patient states he has hives on his right leg , has been using a cream to help the itching. He believes it is the chloraprep. Accompanied by: Self / Same As Patient Allergies chloraprep Allergy (Intermediate, Uncoded 06/26/24 09:19) Hives HPI HPI 2 week follow up R GSV RFA: Details: Salomon is presenting today for a 2w f/up to right GSV RFA, performed on 06/13/24. He states that appx 2d after the procedure he began having hives and itching all throughout his right leg, from the groin to his ankles. He states there was a small amount of hives on his left lower leg, on the medial aspect, possibly when his legs touched after the procedure; he states this has since gone away. He states that other than the hives, he is feeling much better. He states he did not reach out to our office, thinking the hives would go away. He states he has been applying anti-itch cream, which has been helping. COUNT INCLUDES THE [facility] Medical History Superficial thrombophlebitis of right leg Varicose veins of right lower extremity with pain Positional lightheadedness Annual visit for general adult medical examination with abnormal findings Varicose vein of leg De Quervain's tenosynovitis, left History of squamous cell carcinoma Dyslipidemia Essential hypertension Vertigo Surgical History H/O umbilical hernia repair Hx of colonoscopy Family History Daughter Mental health disorder Basal cell carcinoma (BCC) of ken ugarte Other Unknown family medical history Social History Housing: House Alcohol intake: current Alcohol intake frequency: a few times a month Patient Tobacco Use Status: Never used Tobacco e-Cigarette/Vaping Use: Never Used Current occupational status: employed Cognitive needs: No Hearing needs: No Vision needs: Yes Review of Systems Const Reports as per HPI and Denies weakness ENT Reports Normal hearing present and Denies dizziness Card Reports as per HPI, Denies chest pain, Denies chest pain at rest, Denies chest pain with activity, Denies dyspnea and Denies dyspnea on exertion Resp Reports as per HPI, Denies cough, Denies dyspnea and Denies dyspnea on exertion GI Reports as per HPI, Denies abdominal pain, Denies nausea and Denies vomiting Musc Denies numbness Skin/Breast Reports as per HPI, Denies erythema and Denies wounds Neuro Reports Normal hearing present, Denies dizziness, Denies numbness, Denies Sensory deficit (Neuro) and Denies weakness Psych Reports no additional complaints Endo Reports no additional complaints Physical Exam Const General: healthy appearing and no acute distress Orientation/consciousness: patient oriented x3 HEENT Head: Yes normal to inspection Ears: hearing grossly normal bilaterally Mouth: Normal oral and palatal mucosa present Resp Effort & Inspection: normal respiratory effort and able to speak in complete sentences Auscultation: clear to auscultation bilaterally Cardio Jugular venous distension: no JVD Rate: regular rate Rhythm: regular rhythm Heart sounds: S1 normal heart sound present and S2 normal heart sound present Bruits: no abdominal aortic bruits, no carotid bruits, no femoral bruits and no renal bruits Peripheral pulses: Peripheral pulses 2+ throughout GI Inspection: Yes normal to inspection Palpation (GI): No Abdominal aortic bruit present Skin General skin exam: no rashes or lesions noted Wounds: no wounds Hair: normal Neuro General: patient oriented x3 Cranial nerves: Yes Normal hearing present Cognition (Neuro): normal cognition Gait exam (Neuro): Normal gait present Motor exam (neuro): 5/5 motor strength present throughout Sensory Exam: No Sensory deficit (Neuro) Extrem Other: Right lower extremity: small erythematous papules noted all throughout the extremity, worse around the posterior aspect of the thigh as well as the ankle area. None noted on the foot. Not painful to palpation. Pt states they are very itchy. General: Yes normal to inspection, Yes full ROM, Yes capillary refill normal and Yes normal gait Assessment & Plan Assessment & Plan (1) Allergic dermatitis: Code(s): L23.9 - Allergic contact dermatitis, unspecified cause Category: Medical Plan: Salomon is presenting today as a 2w follow up s/p right GSV RFA, performed on 06/13/24. He states that 2d after the procedure he had hives all throughout the right lower extremity. He has been applying anti-itch cream with some relief. He states the procedure went well and he has no concerns from that. He states the pain has decreased and he is feeling better. We discussed that he can take Zyrtec or Claritin once daily and Benadryl, 25 or 50mg at night for the itching. We discussed he can continue with the anti-itch cream if he feels like it is working. We discussed that if it worsens, he experiences shortness of breath, CP, or diff breathing, to get to the ER. We discussed that this will likely clear up soon. He is noted to have venous insufficiency in the left lower extremity with some varicosities noted; he states he has no concerns with his left leg and denies any pain or swelling. We discussed to follow back up with us if this changes. Thank you for allowing us to participate in the patient's care. If there are any questions or concerns, please do not hesitate to reach out to us. Coding Level of Care Code Est Pt Level 4 (99432) Diagnoses Allergic dermatitis L23.9
== END 2024-06-26 09:59 | disposition home or self-care (01) ==
LOC: HO.HVS 08:56
PROVIDERS: PCP Internal Medicine; Visit Provider Physician Assistant Surgical
DX: L23.9 Allergic contact dermatitis, unspecified cause (principal)
CPT/HCPCS: 99214

== ENCOUNTER → 2024-06-26 08:56 | Outpatient (BNVA) | payer MEDICARE, SELFPAY | PROVIDERS: PCP Internal Medicine; Visit Provider Physician Assistant Surgical | DX: L23.9 Allergic contact dermatitis, unspecified cause (principal) | CPT/HCPCS: 99212 ==

== ENCOUNTER 2024-12-09 07:12 | Outpatient (REF) | payer MEDICARE, SELFPAY ==
[2024-12-09 10:47] LABS: Alanine Aminotransferase 17 U/L (0-40); Anion Gap 11 (12-20); Aspartate Amino Transferase 27 U/L (5-37); Blood Urea Nitrogen 17 mg/dL (9-16); Calcium 9.3 mg/dL (8.4-10.2); Carbon Dioxide 26 mmol/L (22-29); Chloride 106 mmol/L (96-108); Cholesterol 219 mg/dL (<200); Estimated Glomerular Filt Rate > 60; HDL Cholesterol 49 mg/dL (>40); Potassium 4.2 mmol/L (3.3-5.1); Sodium 139 mmol/L (135-145); Triglycerides 111 mg/dL (<150)
[2024-12-09 11:14] LABS: Folate 13.0 ng/mL (> or = 4.0); Vitamin B12 665 pg/mL (200-900)
== END 2024-12-09 07:13 | disposition home or self-care (01) ==
LOC: HO.HMGCLDS 07:12
PROVIDERS: PCP Internal Medicine; Visit Provider Internal Medicine
DX: Z00.01 Encounter for general adult medical examination with abnormal findings (principal); I83.11 Varicose veins of right lower extremity with inflammation; M17.11 Unilateral primary osteoarthritis, right knee; I10 Essential (primary) hypertension; E78.5 Hyperlipidemia, unspecified; Z13.21 Encounter for screening for nutritional disorder
CPT/HCPCS: 36415; 80048; 80061; 82306; 82607; 82746; 84450; 84460

== ENCOUNTER 2025-02-24 09:03 | Outpatient (AMB) | payer MEDICARE, SELFPAY ==
--- NOTE | 2025-02-24 09:10 | MHC.OFFVIS ---
Vital Signs 02/24/25 09:11 Height 5 ft 10 in Weight 209 lb BMI 30.0 Intake Visit Reasons: PRN follow up VV LLE Intake Note: pt here for Left LE VV w/ pain that has been bothering him w/ hx of Right GSV RFA 06/26/24 [employer] Work[employer] Handle Required: No Accompanied by: Self / Same As Patient Allergies chloraprep Allergy (Intermediate, Uncoded 02/24/25 15:17) Hives HPI HPI PRN follow up VV LLE: Details: The patient is a 69-year-old male presenting with knee pain and phlebitis. The patient reports chronic knee pain, which has been exacerbated by prolonged standing and activities such as getting into a car. He suspects the need for a knee replacement and has previously undergone surgery on the knee. The patient has not yet consulted orthopedics for the current knee issue. The patient also presents with phlebitis of the great saphenous vein, characterized by tenderness and discoloration. Warm compresses and nonsteroidal anti-inflammatory drugs have been recommended for symptom management. He notes that the pain and discomfort is more so left than right. [facility] Medical History Superficial thrombophlebitis of right leg Varicose veins of right lower extremity with pain Positional lightheadedness Annual visit for general adult medical examination with abnormal findings Varicose vein of leg De Quervain's tenosynovitis, left History of squamous cell carcinoma Dyslipidemia Essential hypertension Vertigo Surgical History H/O umbilical hernia repair Hx of colonoscopy Family History Daughter Mental health disorder Basal cell carcinoma (BCC) of ken ugarte Other Unknown family medical history Social History Housing: House Alcohol intake: current Alcohol intake frequency: a few times a month Patient Tobacco Use Status: Never used Tobacco e-Cigarette/Vaping Use: Never Used Current occupational status: employed Cognitive needs: No Hearing needs: No Vision needs: Yes Review of Systems Const Reports as per HPI ENT Reports no additional complaints Card Denies chest pain, Denies chest pain at rest and Denies chest pain with activity Resp Denies chest congestion and Denies cough GI Reports no additional complaints Musc Details: pain over varicosities, aching of lower extremities, swelling, cramping, heaviness and tiredness, itching Denies abnormal gait Skin/Breast Reports pruritus and Denies wounds Neuro Reports no additional complaints and Denies abnormal gait Psych Denies no additional complaints Physical Exam Vital Signs: BMI result Body Mass Index 30.0 Const General: cooperative, healthy appearing and comfortable Orientation/consciousness: oriented to person, oriented to place and oriented to time Neck Carotids: no bruits Chest Chest palpation & inspection: normal inspection of the chest and normal palpation of entire chest wall Resp Effort & Inspection: normal respiratory effort and able to speak in complete sentences Cardio Rate: regular rate Heart sounds: S1 normal heart sound present and S2 normal heart sound present Peripheral pulses: Peripheral pulses 2+ throughout GI Inspection: Yes normal to inspection Skin Other: +2 edema, large rope-like varicosities greater than 4 mm CEAP Classification C4 - skin color changes Ep - Etiology Primary As - superficial veins P - reflux General skin exam: dry skin Neuro General: oriented to person, oriented to place and oriented to time Extrem Right lower extremity: full ROM, normal capillary refill and edema Left lower extremity: full ROM, normal capillary refill and edema Psych Mental Status: mental status grossly normal Results Reviewed Results Reviewed: Brief summary of venous insufficiency testing is as follows: right great saphenous vein: Ablated right small saphenous vein: negative right accessory vein: none present left great saphenous vein: Positive left small saphenous vein: negative left accessory vein: none present Please note there is no evidence of any venous aneurysms or significant tortuosity Assessment & Plan Assessment & Plan (1) Varicose veins of left lower extremity with inflammation: Code(s): I83.12 - Varicose veins of left lower extremity with inflammation Category: Medical Plan: This patient has varicose veins with inflammation. They continue to be a source of discomfort for the patient. The patient has tried conservative treatment with compression, leg elevation and exercise program for over 3 months time. They have been compliant with all treatment. This has provided minimal relief for the patient. I do not anticipate this course of treatment will alter the underlying etiology. The patient has been scheduled for lower extremity venous treatment inclusive of --- left great saphenous vein radiofrequency ablation. Risks, benefits, and complications of this procedure has been discussed in detail with the patient including but not limited to bleeding, infection, and the development of a DVT. The patient has demonstrated a clear understanding and has consented. We will schedule the patient as soon as possible. Thank you for allowing us to participate in this patient's care. If there are any questions or concerns please do not hesitate to contact us. Coding Level of Care Code Est Pt Level 4 (45425) Diagnoses Varicose veins of left lower extremity with inflammation I83.12
--- OUTSIDE RECORDS SUMMARY | 2025-02-24 09:43 | XMS_ITS | Patient Health Record ---
Author Organization [facility] Address [address] [place] [address] Care Team Providers Care Cloth Winder Name Role Phone Krish Solis MD Primary Care Provider Unav ailable Justin Shaw Unavailable [phone] Reason For Referral No Information Medications Medication SIG (Take, Route, Frequency, Duration) Notes Start Date End Date Status hydroCHLOROthiazide 25 MG 1 tablet Orall y Once a day; Duration: 30 day(s) Active Keflex 500 MG 1 capsule Orally Twi ce a day; Duration: 10 day(s) 01/11/2012 Not-Taking Plan Of Treatment Pending Test Test Name Order Date 49179- Debride <25 sq cm 01/26/2012 78169 I&D ABSCESS- SIMPLE,SINGLE 012 90473- Nail Unit Biopsy 01/26/2012 Insurance Providers Payer Name Payer Address Payer Phone Subscriber Number Group Number Insured Name Patient Relationship to Insured Coverage Start Date Coverage End Date [facility] [address] [place] [address] [id number] Salomon Miranda Self - patient is the insured Medical (General) History Medical History History ICD Code high blood pressure mumps chicken pox Surgical History Surgery Date(Month/Year) hernia left knee surgery 09/30/2014
== END 2025-02-24 09:53 | disposition home or self-care (01) ==
LOC: HO.HVS 09:04
PROVIDERS: PCP Internal Medicine; Visit Provider Surgery Vascular Surgery
DX: I83.12 Varicose veins of left lower extremity with inflammation (principal)
CPT/HCPCS: 99214

== ENCOUNTER → 2025-02-24 09:03 | Outpatient (BNVA) | payer MEDICARE, SELFPAY | PROVIDERS: PCP Internal Medicine; Visit Provider Surgery Vascular Surgery | DX: S70.362A Insect bite (nonvenomous), left thigh, initial encounter (principal); I83.12 Varicose veins of left lower extremity with inflammation | CPT/HCPCS: 99212 ==

== ENCOUNTER 2025-02-24 15:07 | Outpatient (AMB) | payer MEDICARE, SELFPAY ==
[2025-02-24 15:10] VITALS: BP 124/70; PULSE 74; TEMP 36.8; O2SAT 96; BMI 29.6
--- NOTE | 2025-02-24 15:10 | AM.OFFWIN_ITS ---
Intake Vital Signs 02/24/25 15:10 Height 5 ft 10 in Weight 206 lb BMI 29.6 BP 124/70 Blood Pressure Location Rt brachial Position Sitting Pulse 74 Pulse Source Pulse Oximeter Temp 98.2 F Temp Source Oral Pulse Oximetry (%) 96 Oxygen Delivery Method Room Air Intake Visit Reasons: EP-rt inner thigh tick bite Intake Note: pt presents with tick bite to right inner thigh was removed today and head may still be in place after hiking in the [place] ago Patient Tobacco Use Status: Never used Tobacco Allergies chloraprep Allergy (Intermediate, Uncoded 02/24/25 15:17) Hives Do you need a note to return to daycare/school/sports/work: No HPI HPI Comments History of Present Illness Details History - The patient is a 69-year-old male pres enting with a tick bite of left inner thigh. - The tick bite occurred during a walk i n the [facility] on Sunday, and the patient attempted to remove it himself, possibly leaving parts of the tick embedded. - The patient reports no fever, malaise, or aches since the bite. - The patient noted a defined [place] und the bite area, which he attempted to remove with a magnifier, suspecting the tick's head or beak remained. - No joint pain, fevers or rashes are re ported. Review of Systems - General: Denies fever, malaise, or ach es - Neurological: Denies numbness or menta l status changes All systems reviewed and are unremarkable except as noted in HPI Physical Exam General: Cooperative, healthy appearing, comfortable, no acute distress and well developed Orientation: Patient oriented x3 Limitations: No limitations Head: Normal to inspection Ears: Hearing grossly normal bilaterally Face and sinus: Normal facial exam Eyes: Appearance normal, both eyes and all related structures Neck: Normal visual inspection and Yes full ROM Respiratory: Normal respiratory effort and able to speak in complete sentences. Skin: left inner upper thigh with pinpoint dark area surrounded by 0.5cm circular area of erythema, no drainage, no warmth. Neuro: Patient oriented x3 [facility] Medical History Superficial thrombophlebitis of right leg Varicose veins of right lower extremity with pain Positional lightheadedness Annual visit for general adult medical examination with abnormal findings Varicose vein of leg De Quervain's tenosynovitis, left History of squamous cell carcinoma Dyslipidemia Essential hypertension Vertigo Surgical History H/O umbilical hernia repair Hx of colonoscopy Family History Daughter Mental health disorder Basal cell carcinoma (BCC) of ken ugarte Other Unknown family medical history Social History Housing: House Alcohol intake: current Alcohol intake frequency: a few times a month Patient Tobacco Use Status: Never used Tobacco e-Cigarette/Vaping Use: Never Used Current occupational status: employed Cognitive needs: No Hearing needs: No Vision needs: Yes Physical Exam Vital Signs: Last Vital Signs Temp 98.2 F 02/24/25 15:10 Pulse 74 02/24/25 15:10 BP 124/70 02/24/25 15:10 Pulse Ox 96 02/24/25 15:10 Oxygen Delivery Method Room Air 02/24/25 15:10 BMI result Body Mass Index 29.6 Assessment & Plan Assessment & Plan (1) Tick bite: Code(s): W57.XXXA - Bitten or stung by nonvenomous insect and other nonvenomous arthropods, initial encounter Qualifiers: Encounter type: initial encounter Site of tick bite: thigh Laterality: left Qualified Code(s): S70.362A - Insect bite (nonvenomous), left thigh, initial encounter; W57.XXXA - Bitten or stung by nonvenomous insect and other nonvenomous arthropods, initial encounter Plan: Plan - Administer a one-time dose of doxycycline as prophylaxis for Lyme disease, given the tick was attached for potentially over 36 hours and prophylaxis is initiated within 72 hours of removal. - Monitor the site for signs of infection, such as increasing redness or signs of cellulitis, and advise the patient to seek medical attention if these occur. - Educated the patient on recognizing symptoms of Lyme disease, including the appearance of a bull's-eye rash, and advise to return if symptoms develop. Patient was informed and verbally consented to the use of an ambient scribe for clinic note documentation during this visit. Medications: New doxycycline hyclate 200 mg (2 x 100 mg) PO once 2 tabs 0RF tick bite ppx Coding Level of Care Code Est Pt Level 3 (65438) Diagnoses Tick bite of left thigh, initial encounter S70.362A; W57.XXXA Encounter type: initial encounter Site of tick bite: thigh Laterality: left
== END 2025-02-24 15:53 | disposition home or self-care (01) ==
PROVIDERS: PCP Internal Medicine; Visit Provider Physician Assistant
DX: S70.362A Insect bite (nonvenomous), left thigh, initial encounter (principal); W57.XXXA Bitten or stung by nonvenomous insect and other nonvenomous arthropods, initial encounter

== ENCOUNTER 2025-03-05 09:17 | Outpatient (AMB) | payer MEDICARE, SELFPAY ==
[2025-03-05 09:33] VITALS: BP 132/80; PULSE 83; O2SAT 96; BMI 29.6
--- NOTE | 2025-03-05 09:33 | AM.OFFWIN_ITS ---
Intake Vital Signs 03/05/25 09:33 Height 5 ft 10 in Weight 206 lb BMI 29.6 BP 132/80 Blood Pressure Location Lt brachial Position Sitting Pulse 83 Pulse Source Pulse Oximeter Pulse Oximetry (%) 96 Oxygen Delivery Method Room Air Intake Visit Reasons: EP tick bite Intake Note: Patient returns c/o tick bite that he wants rechecked. He was seen on 02/24 & was given ABX but states the site does not look good. Patient Tobacco Use Status: Never used Tobacco Allergies chloraprep Allergy (Intermediate, Uncoded 03/05/25 09:35) Hives Medication List - Last Reconciled 03/05/25 by Jolene Rush NP blood pressure monitor check bloos pressure As directed blood pressure test kit-medium check blood pressure as directed once a day cholecalciferol (vitamin D3) 50 mcg PO DAILY lisinopril 5 mg PO DAILY mecobalamin (vitamin B12) mcg PO omega 9-wdz-bxn-fish oil 1,200 (144-216) mg (Fish Oil) caps PO HPI HPI Comments History of Present Illness Details 69-year-old male presents to [facility] with concern for erythematous rash at site of prior tick bite on the left anterior thigh. Tick was removed on 02/22; patient was seen in clinic on 02/24 and received a one-time prophylactic dose of doxycycline. Today he reports noticing increasing redness around the bite area. Denies fever, chills, malaise, myalgias, headache, arthralgias, or flu-like symptoms. No drainage, streaking, or worsening pain. Patient and are concerned about possible skin infection. [facility] Medical History Superficial thrombophlebitis of right leg Varicose veins of right lower extremity with pain Positional lightheadedness Annual visit for general adult medical examination with abnormal findings Varicose vein of leg De Quervain's tenosynovitis, left History of squamous cell carcinoma Dyslipidemia Essential hypertension Vertigo Surgical History H/O umbilical hernia repair Hx of colonoscopy Family History Daughter Mental health disorder Basal cell carcinoma (BCC) of ken ugarte Other Unknown family medical history Social History Housing: House Alcohol intake: current Alcohol intake frequency: a few times a month Patient Tobacco Use Status: Never used Tobacco e-Cigarette/Vaping Use: Never Used Current occupational status: employed Cognitive needs: No Hearing needs: No Vision needs: Yes Review of Systems Const All systems reviewed & are unremarkable except as noted in HPI and below Physical Exam Vital Signs: Last Vital Signs Pulse 83 03/05/25 09:33 BP 132/80 03/05/25 09:33 Pulse Ox 96 03/05/25 09:33 Oxygen Delivery Method Room Air 03/05/25 09:33 BMI result Body Mass Index 29.6 Const General: no acute distress Nutritional Appearance: well nourished Orientation/consciousness: patient oriented x3 Resp Effort & Inspection: normal respiratory effort Cardio Rate: regular rate Skin Other: Left anterior thigh with localized erythematous patch surrounding prior tick bite site. No vesicles, purulence, fluctuance, or warmth beyond mild localized warmth. No lymphangitic streaking. bull?s-eye rash noted. Neuro General: patient oriented x3, gait normal and moves all extremities Psych Speech and movement: Normal speech and movement present Assessment & Plan Assessment & Plan (1) Tick bite: Code(s): W57.XXXA - Bitten or stung by nonvenomous insect and other nonvenomous arthro pods, initial encounter Qualifiers: Encounter type: initial encounter Site of tick bite: thigh Laterality: left Qualified Code(s): S70.362A - Insect bite (nonvenomous), left thigh, initial encounter; W57.XXXA - Bitten or stung by nonvenomous insect and other nonvenomous arthropods, initial encounter Plan: Local skin reaction vs early localized infection after tick bite ? mild erythema expected post-bite vs. early cellulitis vs. evolving erythema Migrans. Discussed that mild localized erythema can occur after tick removal and may persist. Ordered doxycycline 100 mg BID x 10 days - rash is consistent with early erythema Migrans and spreading. Keep area clean and dry; can apply topical hydrocortisone for itch if needed. Reviewed signs of infection: increased warmth, swelling, pain, drainage, red streaking ? return sooner if any develop. Patient verbalized understanding; reassured. Medications: New doxycycline hyclate 100 mg PO BID 20 caps 0RF 10 days A69.20 - Lyme disease, unspecified, S70.362A - Insect bite (nonvenomous), left thigh, initial encounte r, W57.XXXA - Bitten or stung by nonvenomous insect and other nonvenomous arthropods, initial encounter Discontinued doxycycline hyclate Discontinued Reason: Patient Completed Course 200 mg (2 x 100 mg) PO once 2 tabs 0RF tick bite ppx Coding Level of Care Code Est Pt Level 4 (06281) Diagnoses Tick bite of left thigh, initial encounter S70.362A; W57.XXXA Encounter type: initial encounter Site of tick bite: thigh Laterality: left Time Spent (min) 20
--- OUTSIDE RECORDS SUMMARY | 2025-03-05 12:00 | XMS_ITS | Patient Health Record ---
Author Organization [facility] Address [address] [place] [address] Care Team Providers Care Floor Runner Name Role Phone Krish Solis MD Primary Care Provider Unav ailable Justin Shaw Unavailable [phone] Reason For Referral No Information Medications Medication SIG (Take, Route, Frequency, Duration) Notes Start Date End Date Status hydroCHLOROthiazide 25 MG 1 tablet Orall y Once a day; Duration: 30 day(s) Active Keflex 500 MG 1 capsule Orally Twi ce a day; Duration: 10 day(s) 01/11/2012 Not-Taking Plan Of Treatment Pending Test Test Name Order Date 98211- Debride <25 sq cm 01/26/2012 60427 I&D ABSCESS- SIMPLE,SINGLE 012 98887- Nail Unit Biopsy 01/26/2012 Insurance Providers Payer Name Payer Address Payer Phone Subscriber Number Group Number Insured Name Patient Relationship to Insured Coverage Start Date Coverage End Date [facility] [address] [place] [address] [id number] Salomon Miranda Self - patient is the insured Medical (General) History Medical History History ICD Code high blood pressure mumps chicken pox Surgical History Surgery Date(Month/Year) hernia left knee surgery 09/30/2014
== END 2025-03-05 10:19 | disposition home or self-care (01) ==
PROVIDERS: PCP Internal Medicine; Visit Provider Nurse Practitioner Family
DX: S70.362A Insect bite (nonvenomous), left thigh, initial encounter (principal); W57.XXXA Bitten or stung by nonvenomous insect and other nonvenomous arthropods, initial encounter

== ENCOUNTER → 2025-03-05 09:17 | Outpatient (BNVA) | payer MEDICARE, SELFPAY | PROVIDERS: PCP Internal Medicine; Visit Provider Nurse Practitioner Family | DX: S70.362A Insect bite (nonvenomous), left thigh, initial encounter (principal); W57.XXXA Bitten or stung by nonvenomous insect and other nonvenomous arthropods, initial encounter | CPT/HCPCS: 99212 ==

== ENCOUNTER 2025-03-06 08:05 | Outpatient (AMB) | payer MEDICARE, SELFPAY ==
--- OUTSIDE RECORDS SUMMARY | 2025-03-06 08:09 | XMS_ITS | Patient Health Record ---
Author Organization [facility] Address [address] [place] [address] Care Team Providers Care Science Tutor Name Role Phone Krish Solis MD Primary Care Provider Unav ailable Justin Shaw Unavailable [phone] Reason For Referral No Information Medications Medication SIG (Take, Route, Frequency, Duration) Notes Start Date End Date Status hydroCHLOROthiazide 25 MG 1 tablet Orall y Once a day; Duration: 30 day(s) Active Keflex 500 MG 1 capsule Orally Twi ce a day; Duration: 10 day(s) 01/11/2012 Not-Taking Plan Of Treatment Pending Test Test Name Order Date [id number]- Debride <25 sq cm 01/26/2012 68488 I&D ABSCESS- SIMPLE,SINGLE 012 98969- Nail Unit Biopsy 01/26/2012 Insurance Providers Payer Name Payer Address Payer Phone Subscriber Number Group Number Insured Name Patient Relationship to Insured Coverage Start Date Coverage End Date [facility] [address] [place] [address] [id number] Salomon Miranda Self - patient is the insured Medical (General) History Medical History History ICD Code high blood pressure mumps chicken pox Surgical History Surgery Date(Month/Year) hernia left knee surgery 09/30/2014
[2025-03-06 08:17] VITALS: BMI 29.6
--- NOTE | 2025-03-06 08:17 | MHC.OFFVIS ---
Vital Signs 03/06/25 08:17 Height 5 ft 10 in Weight 206 lb BMI 29.6 Intake Visit Reasons: Left GSV RFA Rn Behavioral Health Required: No Accompanied by: Self / Same As Patient Allergies chloraprep Allergy (Intermediate, Uncoded 03/06/25 08:18) Hives [facility] Medical History Superficial thrombophlebitis of right leg Varicose veins of right lower extremity with pain Positional lightheadedness Annual visit for general adult medical examination with abnormal findings Varicose vein of leg De Quervain's tenosynovitis, left History of squamous cell carcinoma Dyslipidemia Essential hypertension Vertigo Surgical History H/O umbilical hernia repair Hx of colonoscopy Family History Daughter Mental health disorder Basal cell carcinoma (BCC) of ken ugarte Other Unknown family medical history Social History Housing: House Alcohol intake: current Alcohol intake frequency: a few times a month Patient Tobacco Use Status: Never used Tobacco e-Cigarette/Vaping Use: Never Used Current occupational status: employed Cognitive needs: No Hearing needs: No Vision needs: Yes Physical Exam Vital Signs: BMI result Body Mass Index 29.6 Office Procedures Vascular Office Procedure Details Details: Diagnosis: Varicose veins with inflammation of left leg Procedure: Endovenous radiofrequency ablation of the left great saphenous vein(s) of the lower extremity. Anesthesia: Local infiltration 5 cc, Tumescent 400 cc. Estimated Blood Loss: minimal Specimen: Varicose veins The patient was transferred to the procedure suite and the insufficient saphenous vein was mapped by ultrasound and diagrammed on the overlying skin. The depth and diameter of the vein(s) to be treated was documented. The varicose tributary veins and suitable access sites were identified and mapped as well. The patient was then positioned supine on the procedure table. The affected limb was prepped and draped in the usual sterile fashion. The RF catheter was placed on the sterile field, flushed and wiped down, prepared, and connected by a sterile cable. The patient was placed in supine position and local anesthesia was instilled in the skin overlying the access site. A skin incision was made overlying the identified and mapped great saphenous vein entry site. The vein was accessed using ultrasound guidance and the Seldinger technique, a guide wire was introduced through the needle, which was then exchanged over the guide wire for a 6F sheath, which was secured in place. The guide wire was removed and the sheath was flushed. The RF catheter was placed into the vein through the sheath and preferentially, imaging was used to place the catheter tip just inferior to the superficial epigastric vein to preserve normal physiological flow in that vein. Additionally, it was confirmed by ultrasound guidance that the catheter tip was also placed a minimum of 1.5cm distal to the saphenofemoral junction. After the RF catheter position was verified by ultrasound, tumescent anesthesia was infiltrated, under ultrasound guidance, precisely into the perivenous compartment along the entire length of vein from the entry site to the saphenofemoral junction until a halo of fluid was noted around the vein. The patient was then placed in supine position to further exsanguinate the superficial venous system. After RF catheter position was again confirmed with ultrasound imaging, and under direct external compression along the length of the heating element, RF energy was applied. The vein was segmentally ablated by heating a 8 cm segment and then indexing the catheter forward by 7.5 cm until the treatment length is completed. Device temperature was maintained at 120 plus or minus 5 degrees C with an initial power level of 40W dropping to below 20W for each treatment. Total vein length treated 40 cm Total cycles of RF 6. Repeat ultrasound of the saphenous vein was performed, confirming successful treatment. The catheter and sheath were withdrawn and hemostasis established with direct pressure. After assuring hemostasis, the skin incision over the saphenous vein was closed with a bandage and a compression wrap, and/ or graduated compression stocking was applied from the level of the foot to the most proximal level of the thigh. 51913 - Endovenous RF, 1st Vein All charges added?: Procedure code (CPT) selection complete Assessment & Plan Assessment & Plan (1) Varicose veins of left lower extremity with inflammation: Comment: 03/06/2025 - left great saphenous vein radiofrequency ablation Code(s): I83.12 - Varicose veins of left lower extremity with inflammation Category: Medical Plan: See op note Coding Level of Care Code Procedure Only Diagnoses Varicose veins of left lower extremity with inflammation I83.12 CPT Codes Details - Vascular 1: 20796 - Endovenous RF, 1st Vein ([id number])
== END 2025-03-06 09:44 | disposition home or self-care (01) ==
LOC: HO.HVS 08:06
PROVIDERS: PCP Internal Medicine; Visit Provider Surgery Vascular Surgery
DX: I83.12 Varicose veins of left lower extremity with inflammation (principal)
CPT/HCPCS: 36475

== ENCOUNTER → 2025-03-06 08:05 | Outpatient (BNVA) | payer MEDICARE, SELFPAY | PROVIDERS: PCP Internal Medicine; Visit Provider Surgery Vascular Surgery | DX: I83.12 Varicose veins of left lower extremity with inflammation (principal) | CPT/HCPCS: 36475; J2003; J2004 ==

== ENCOUNTER 2025-03-19 10:03 | Outpatient (AMB) | payer MEDICARE, SELFPAY ==
--- NOTE | 2025-03-19 10:23 | MHC.OFFVIS ---
Intake Visit Reasons: 2 wk follow up Left GSV RFA 03/06/25 Intake Note: Patient presents for follow up left gsv venaseal performed on 03/06/25. Patient states he has some painful spots on his leg , only hurts when touched. Accompanied by: Self / Same As Patient Allergies chloraprep Allergy (Intermediate, Uncoded 03/06/25 08:18) Hives HPI HPI 2 wk follow up Left GSV RFA 03/06/25: Details: The patient is a 69 year old male presenting for a routine post-procedure follow-up after a left great saphenous vein ablation on 03/06/2025. He has a history of a prior vein procedure on the right leg. in general reports a good result with decrease in swelling and discomfort. Regarding his left leg, he reports a small bulge, a few keen, and some pain with pressure that extends up the leg. He also describes a sensation of a rope pulling underneath the skin. He denies requiring any pain medication like Advil and is able to walk at a good pace without significant problems. He now presents for routine postprocedure follow-up [facility] Medical History Superficial thrombophlebitis of right leg Varicose veins of right lower extremity with pain Positional lightheadedness Annual visit for general adult medical examination with abnormal findings Varicose vein of leg De Quervain's tenosynovitis, left History of squamous cell carcinoma Dyslipidemia Essential hypertension Vertigo Surgical History H/O umbilical hernia repair Hx of colonoscopy Family History Daughter Mental health disorder Basal cell carcinoma (BCC) of ken ugarte Other Unknown family medical history Social History Housing: House Alcohol intake: current Alcohol intake frequency: a few times a month Patient Tobacco Use Status: Never used Tobacco e-Cigarette/Vaping Use: Never Used Current occupational status: employed Cognitive needs: No Hearing needs: No Vision needs: Yes Review of Systems Const All systems reviewed & are unremarkable except as noted in HPI and below Reports no additional complaints ENT Reports Normal hearing present Card Denies chest pain, Denies chest pain at rest, Denies chest pain with activity and Denies pedal edema Resp Denies cough GI Denies abdominal pain Musc Denies abnormal gait, Denies muscle cramps and Denies radiating pain into limb Skin/Breast Denies skin ulcer and Denies wounds Neuro Reports Normal hearing present and Denies abnormal gait Psych Reports no additional complaints Physical Exam Const General: cooperative, healthy appearing and comfortable Orientation/consciousness: oriented to person, oriented to place and oriented to time HEENT Head: Yes normal to inspection Neck Neck: Yes normal visual inspection Carotids: no bruits Chest Chest palpation & inspection: normal inspection of the chest Resp Effort & Inspection: normal respiratory effort and able to speak in complete sentences Auscultation: clear to auscultation bilaterally, no crackles, no rales, no rhonchi and no wheezes Cardio Rate: regular rate Rhythm: regular rhythm Heart sounds: S1 normal heart sound present and S2 normal heart sound present Bruits: no carotid bruits Peripheral pulses: Peripheral pulses 2+ throughout GI Inspection: Yes normal to inspection Skin Wounds: no wounds Hair: normal Neuro General: oriented to person, oriented to place and oriented to time Cranial nerves: Yes CN's II-XII intact bilaterally and Yes Normal hearing present Cognition (Neuro): normal cognition Motor exam (neuro): 5/5 motor strength present throughout Extrem Other: venous exam: No significant superficial varicosities or spider telangiectasias, minimal edema General: No clubbing, No cyanosis and No edema Psych Appearance: grossly normal Mental Status: mental status grossly normal Speech and movement: Normal speech and movement present Assessment & Plan Assessment & Plan (1) Varicose veins of left lower extremity with inflammation: Comment: 03/06/2025 - left great saphenous vein radiofrequency ablation Code(s): I83.12 - Varicose veins of left lower extremity with inflammation Category: Medical Plan: The patient has done extremely well with all venous treatments. Patient's may often experience postprocedure phlebitic episodes and I have discussed with the patient use of warm compresses and NSAIDS if tolerated for pain discomfort. In addition, I have discussed continued conservative measures including use of compression, leg elevation, and exercise. The patient was also given an information sheet regarding appropriate use of compression stockings and future purchases. Thank you for allowing us to care for your patient with venous disease. Coding Level of Care Code Est Pt Level 4 (22040) Diagnoses Varicose veins of left lower extremity with inflammation I83.12
--- OUTSIDE RECORDS SUMMARY | 2025-03-19 11:55 | XMS_ITS | Patient Health Record ---
Author Organization [facility] Address [address] [place] [address] Care Team Providers Care Electromechanical Assembly Technician Name Role Phone Krish Solis MD Primary Care Provider Unav ailable Justin Shaw Unavailable [phone] Reason For Referral No Information Medications Medication SIG (Take, Route, Frequency, Duration) Notes Start Date End Date Status hydroCHLOROthiazide 25 MG 1 tablet Orall y Once a day; Duration: 30 day(s) Active Keflex 500 MG 1 capsule Orally Twi ce a day; Duration: 10 day(s) 01/11/2012 Not-Taking Plan Of Treatment Pending Test Test Name Order Date [id number]- Debride <25 sq cm 01/26/2012 78352 I&D ABSCESS- SIMPLE,SINGLE 012 06236- Nail Unit Biopsy 01/26/2012 Insurance Providers Payer Name Payer Address Payer Phone Subscriber Number Group Number Insured Name Patient Relationship to Insured Coverage Start Date Coverage End Date [facility] [address] [place] [address] [id number] Salomon Miranda Self - patient is the insured Medical (General) History Medical History History ICD Code high blood pressure mumps chicken pox Surgical History Surgery Date(Month/Year) hernia left knee surgery 09/30/2014
== END 2025-03-19 10:55 | disposition home or self-care (01) ==
LOC: HO.HVS 10:04
PROVIDERS: PCP Internal Medicine; Visit Provider Surgery Vascular Surgery
DX: I83.12 Varicose veins of left lower extremity with inflammation (principal)
CPT/HCPCS: 99214

== ENCOUNTER → 2025-03-19 10:03 | Outpatient (BNVA) | payer MEDICARE, SELFPAY | PROVIDERS: PCP Internal Medicine; Visit Provider Surgery Vascular Surgery | DX: I83.12 Varicose veins of left lower extremity with inflammation (principal) | CPT/HCPCS: 99212 ==

== ENCOUNTER 2025-03-23 07:15 | Outpatient (AMB) | payer MEDICARE, SELFPAY ==
--- OUTSIDE RECORDS SUMMARY | 2025-03-23 07:17 | XMS_ITS | Patient Health Record ---
Author Organization [facility] Address [address] [place] [address] Care Team Providers Care Sex Worker Or Escort Name Role Phone Krish Solis MD Primary Care Provider Unav ailable Justin Shaw Unavailable [phone] Reason For Referral No Information Medications Medication SIG (Take, Route, Frequency, Duration) Notes Start Date End Date Status hydroCHLOROthiazide 25 MG 1 tablet Orall y Once a day; Duration: 30 day(s) Active Keflex 500 MG 1 capsule Orally Twi ce a day; Duration: 10 day(s) 01/11/2012 Not-Taking Plan Of Treatment Pending Test Test Name Order Date [id number]- Debride <25 sq cm 01/26/2012 66811 I&D ABSCESS- SIMPLE,SINGLE 012 65742- Nail Unit Biopsy 01/26/2012 Insurance Providers Payer Name Payer Address Payer Phone Subscriber Number Group Number Insured Name Patient Relationship to Insured Coverage Start Date Coverage End Date [facility] [address] [place] [address] [id number] Salomon Miranda Self - patient is the insured Medical (General) History Medical History History ICD Code high blood pressure mumps chicken pox Surgical History Surgery Date(Month/Year) hernia left knee surgery 09/30/2014
[2025-03-23 07:20] VITALS: BP 120/80; PULSE 94; TEMP 36.8; O2SAT 97; BMI 29.1
--- NOTE | 2025-03-23 07:20 | AM.OFFWIN_ITS ---
Intake Vital Signs 03/23/25 07:20 Height 5 ft 10 in Weight 203 lb BMI 29.1 BP 120/80 Blood Pressure Location Lt brachial Position Sitting Pulse 94 Pulse Source Pulse Oximeter Temp 98.3 F Temp Source Oral Pulse Oximetry (%) 97 Oxygen Delivery Method Room Air Intake Visit Reasons: EP-lt ear block Intake Note: Patient presents c/o left ear blocked x4 days. Patient Tobacco Use Status: Never used Tobacco Allergies chloraprep Allergy (Intermediate, Uncoded 03/23/25 07:22) Hives HPI HPI Comments History of Present Illness Details History - The patient is a 69 year old male pres enting with left ear blockage. - He reports being prone to cerumen buil dup and has been flushing his ear at home for four days without improvement. - He has noticed a loss of high-frequenc y hearing in his left ear which has recently worsened. - He reports using 3% hydrogen peroxide and Debrox at home. - He denies sick contacts, fever, chills , HAND, discharge, cough, or dizziness. Physical Exam General: Cooperative, healthy appearing, comfortable, no acute distress and well developed Head: Normal to inspection Ears: External ears normal bilaterally. No tragus or mastoid tenderness noted. Cerumen noted in the canal. Face and sinus: Normal facial exam. No TTP of the sinuses. Neck: Normal visual inspection. Full ROM. No lymphadenopathy noted. Respiratory: Normal respiratory effort and able to speak in complete sentences. Clear to auscultation bilaterally. No w/r/r noted. Cardiac: RRR, no m/r/g noted. Normal S1 and S2 noted. Skin: No rashes or lesions noted Neuro: Patient oriented x3 Patient was informed and verbally consented to the use of an ambient scribe for clinic note documentation during this visit. [facility] Medical History Superficial thrombophlebitis of right leg Varicose veins of right lower extremity with pain Positional lightheadedness Annual visit for general adult medical examination with abnormal findings Varicose vein of leg De Quervain's tenosynovitis, left History of squamous cell carcinoma Dyslipidemia Essential hypertension Vertigo Surgical History H/O umbilical hernia repair Hx of colonoscopy Family History Daughter Mental health disorder Basal cell carcinoma (BCC) of ken ugarte Other Unknown family medical history Social History Housing: House Alcohol intake: current Alcohol intake frequency: a few times a month Patient Tobacco Use Status: Never used Tobacco e-Cigarette/Vaping Use: Never Used Current occupational status: employed Cognitive needs: No Hearing needs: No Vision needs: Yes Review of Systems Const All systems reviewed & are unremarkable except as noted in HPI and below Physical Exam Vital Signs: Last Vital Signs Temp 98.3 F 03/23/25 07:20 Pulse 94 03/23/25 07:20 BP 120/80 03/23/25 07:20 Pulse Ox 97 03/23/25 07:20 Oxygen Delivery Method Room Air 03/23/25 07:20 BMI result Body Mass Index 29.1 Office Procedures Cerumen Removal From which ear canal was the cerumen removed: bilateral Removal: irrigation Notes: patient tolerated procedure well, no complications and ear canal clear [id number] Irrigation/Lavage Assessment & Plan Assessment & Plan (1) Cerumen impaction: Code(s): H61.20 - Impacted cerumen, unspecified ear Qualifiers: Laterality: bilateral Qualified Code(s): H61.23 - Impacted cerumen, bilateral Plan Most likely cerumen impaction Plan - Proceed with bilateral ear irrigation to remove the cerumen impaction. - A prescription for ear drops was considered, but deferred as the patient reported already having and using Debrox at home. - can f/u with ENT - avoid q-tips in the ears - follow up with PCP Orders: Orders AMB Cerumen Removal Today H61.23 - Impacted cerumen, bilateral Coding Level of Care Code Est Pt Level 3 (97260) Diagnoses Bilateral impacted cerumen H61.23 Laterality: bilateral CPT Codes Office Procedure - CPT: 54515-Okk Irrigation/Lavage ([id number])
== END 2025-03-23 08:10 | disposition home or self-care (01) ==
PROVIDERS: PCP Internal Medicine; Visit Provider Physician Assistant Medical
DX: H61.23 Impacted cerumen, bilateral (principal)

== ENCOUNTER → 2025-03-23 07:15 | Outpatient (BNVA) | payer MEDICARE, SELFPAY | PROVIDERS: PCP Internal Medicine; Visit Provider Physician Assistant Medical | DX: H61.23 Impacted cerumen, bilateral (principal) | CPT/HCPCS: 69209; 99212 ==